=== PATIENT | female | born 1980 | race Caucasian/White ===

== ENCOUNTER 2022-07-11 05:20 | Inpatient (IN) | payer OTHER ==
[~2022-07-11] VITALS: Ht 175.3 cm; Wt 71.6 kg
[~2022-07-11 05:20] MED LIST: PROP60CA31 PO
[2022-07-11] MEDS ORDERED: CeFAZolin 2 GM/DEXTROSE 50 ML IV ONE (05:30)
[2022-07-11] MEDS ORDERED: RINGERS SOLUTION,LACTATED 1,000 ML IV ONE ×3 (05:30→13:16)
[2022-07-11 06:09] LABS: COVID AG,FIA SOURCE NASAL SWAB
[2022-07-11] MEDS ORDERED: SODIUM CHLORIDE 0.9% 100 ML ONE ×2 (06:24→07:10)
[2022-07-11 07:46] LABS: ABG A-A DIFF O2 20.2 mmHg (10-20.0); ABG BASE EXCESS -0.1 mmol/L (-2.0-3.0); ABG HCO3 24.9 mmol/L (22.0-26.0); ABG METHEMOGLOBIN 0.3 % (0.0-1.5); ABG OXYGEN CONTENT 18.6 mL/dL (15.0-23.0); ABG OXYGEN SATURATION 97.3 % (95.0-98.0); ABG PCO2 33 mmHg (35-45); ABG PH 7.474 (7.35-7.450); ABG TOTAL HEMOGLOBIN 13.7 G/dL (12.0-18.0); O2 DEVICE,BLOOD GAS ROOM AIR (ROOM AIR); PO2, ARTERIAL BG 90.6 mmHg (88.0-96.0); SITE, BLOOD GAS ARTERIAL LINE; SOURCE, BLOOD GAS ARTERIAL; TEMPERATURE, FAHRENHEIT, BG 97.7 FAHREN (96.0-98.6)
[2022-07-11] MEDS ORDERED: VANCOMYCIN HCL 1 GM/VIAL ONE (09:42)
[2022-07-11] MEDS: VANCOMYCIN HCL 1 GM/VIAL ONE ×2 (10:27→19:10)
[2022-07-11] MEDS ORDERED: PROPOFOL 1000 MG/ISO-OSM 100 ML ONE (13:16)
[2022-07-11] MEDS ORDERED: BACITRACIN 28 GM OINTMENT TP ONE (13:47)
[2022-07-11] MEDS ORDERED: FentaNYL CITRATE PF 100 MCG/2 ML VIAL IVP PRN (15:00)
[2022-07-11] MEDS ORDERED: HYDROmorphone HCL 2 MG/ML SYRINGE IVP PRN ×2 (15:00→21:30)
[2022-07-11] MEDS ORDERED: MEPERIDINE-PF 25 MG/ML VIAL IVP PRN (15:00)
[2022-07-11] MEDS ORDERED: GELATIN SPONGE,ABSORBABLE 50 MM TP ONE (17:12)
[2022-07-11] MEDS: FentaNYL CIT 1000MCG/0.9% NACL 100 ML IV PRN ×2 (19:39→23:30)
[2022-07-11] MEDS ORDERED: SODIUM CHLORIDE 0.9% 1,000 ML ONE (19:49)
[2022-07-11 20:00] VITALS: BP 146/76
[2022-07-11] MEDS: OXYGEN THERAPY IH SCH (20:49)
[2022-07-11] MEDS: PROPOFOL 1000 MG/ISO-OSM 100 ML IV PRN (20:51)
[2022-07-11 21:43] VITALS: BP 146/76
[2022-07-11 22:00] VITALS: BP 128/64
[2022-07-11] MEDS: POTASSIUM CHL 20 MEQ/D5-0.45NS 1,000 ML IV SCH (22:04)
[2022-07-11] MEDS: CeFAZolin 2 GM/DEXTROSE 50 ML IV SCH (22:28)
[2022-07-12] VITALS (8 sets, daily range): BP systolic 119–145; BP diastolic 56–97
[2022-07-12] MEDS: PROPOFOL 1000 MG/ISO-OSM 100 ML IV PRN ×2 (00:01→04:10)
[2022-07-12] MEDS ORDERED: ONDANSETRON HCL 4 MG/2 ML VIAL IVP PRN (00:15)
[2022-07-12] MEDS ORDERED: BISACODYL 10 MG RECTAL RECTAL SUPPOSITORY PR PRN (00:15)
[2022-07-12] MEDS: FentaNYL CIT 1000MCG/0.9% NACL 100 ML IV PRN (04:14)
[2022-07-12] MEDS: MORPHINE SULFATE 2 MG/ML SYRINGE IVP PRN ×8 (04:41→21:48)
[2022-07-12] MEDS: POTASSIUM CHL 20 MEQ/D5-0.45NS 1,000 ML IV SCH (05:27)
[2022-07-12] MEDS: CeFAZolin 2 GM/DEXTROSE 50 ML IV SCH (05:32)
[2022-07-12 05:50] LABS: BASOPHILS % (AUTO) 0.4 % (0.0-2.0); EOSINOPHILS % (AUTO) 1.1 % (1.0-6.0); HEMATOCRIT 30.9 % (36-46); HEMOGLOBIN 10.4 g/dL (12.0-16.0); LYMPHOCYTES # (AUTO) 0.6 K/uL (1.0-4.8); LYMPHOCYTES % (AUTO) 13.6 % (22.0-44.0); MEAN CORPUSCULAR HEMOGLOBIN 35.1 pg (26.0-34.0); MEAN CORPUSCULAR HGB CONC 33.7 G/dL (31.0-37.0); MEAN CORPUSCULAR VOLUME 104 fL (80-100); MONOCYTES # (AUTO) 0.4 K/uL (0.1-1.0); MONOCYTES % (AUTO) 8.9 % (2.0-9.0); NEUTROPHILS # (AUTO) 3.5 K/uL (1.8-7.7); PLATELET COUNT (AUTO) 88 K/uL (150-450); RED BLOOD CELL COUNT(AUTO) 2.97 MIL/uL (4.00-5.20); RED CELL DISTRIBUTION WIDTH 16.3 % (11.5-14.5)
[2022-07-12 06:02] LABS: PROTHROMBIN TIME 10.9 SEC (9.4-11.6)
[2022-07-12 06:06] LABS: ALANINE AMINOTRANSFERASE 182 U/L (12-78); ALKALINE PHOSPHATASE 45 U/L (46-116); ANION GAP 6 mmol/L (8-16); ASPARTATE AMINOTRANSFERASE 198 U/L (15-37); BILIRUBIN,TOTAL 0.6 mg/dL (0.1-1.0); CALCIUM, TOTAL 7.7 mg/dL (8.8-10.5); CARBON DIOXIDE 29 mmol/L (22-29); CHLORIDE 103 mmol/L (98-107); CREATININE 0.44 mg/dL (0.60-1.30); GLUCOSE,RANDOM 137 mg/dL (70-110); POTASSIUM 3.5 mmol/L (3.5-5.1); SODIUM SERUM 138 mmol/L (136-145); TOTAL PROTEIN, SERUM 6.3 g/dL (6.4-8.2); UREA NITROGEN, BLOOD 5 mg/dL (7-18)
[2022-07-12 06:08] LABS: GLOMERULAR FILTR. RATE CALC > 60 mL/min (>60)
[2022-07-12 06:19] LABS: PLATELET MORPHOLOGY COMMENT LARGE PLTS PRESENT
[2022-07-12] MEDS ORDERED: METOPROLOL TARTRATE 5 MG/5 ML VIAL IVP ONE (06:20)
[2022-07-12] MEDS ORDERED: FentaNYL CITRATE PF 100 MCG/2 ML VIAL IVP ONE (06:20)
[2022-07-12] MEDS ORDERED: DEXAMETHASONE SOD PHOS 4 MG/ML VIAL IVP ONE (06:20)
[2022-07-12] MEDS ORDERED: FentaNYL CITRATE PF 250 MCG/5 ML VIAL IVP ONE (06:20)
[2022-07-12] MEDS ORDERED: MIDAZOLAM HCL 2 MG/2 ML VIAL IVP ONE (06:20)
[2022-07-12] MEDS ORDERED: KETAMINE HCL 50 MG/ML 10 ML VIAL IVP ONE (06:20)
[2022-07-12] MEDS ORDERED: 0.9% SODIUM CHLORIDE 10 ML VIAL IVP ONE (06:20)
[2022-07-12] MEDS ORDERED: HYDROmorphone 2 MG/ML VIAL ED ONE (06:20)
[2022-07-12] MEDS ORDERED: PHENYLEPHRINE HCL 10 MG/ML VIAL IVP ONE (06:20)
[2022-07-12] MEDS ORDERED: ROCURONIUM BROMIDE 10 MG/ML 5 ML VIAL IVP ONE (06:20)
[2022-07-12] MEDS ORDERED: ONDANSETRON HCL 4 MG/2 ML VIAL IVP ONE (06:20)
[2022-07-12] MEDS ORDERED: LIDOCAINE/PF 2% 5 ML VIAL IM ONE (06:20)
[2022-07-12] MEDS: OXYGEN THERAPY IH SCH ×2 (06:35→21:44)
[2022-07-12] MEDS: IPRATROPIUM BROMIDE 0.5 MG/2.5 ML NEB SOLUTION NEB PRN ×2 (06:35→21:26)
[2022-07-12] MEDS: ALBUTEROL SULFATE 2.5 MG/0.5 ML NEB SOLUTION NEB PRN ×2 (06:35→21:26)
[2022-07-12] MEDS: DOCUSATE SODIUM 100 MG CAPSULE PO SCH ×2 (08:08→21:00)
[2022-07-12] MEDS: PANTOPRAZOLE SODIUM 40 MG/VIAL IVP SCH (08:08)
[2022-07-12] MEDS: HEPARIN SODIUM,PORCINE 5,000 UNITS/ML VIAL SQ SCH ×2 (08:09→16:05)
[2022-07-12] MEDS ORDERED: ACETAMINOPHEN 650 MG/20.3 ML SOLUTION UDCUP PO ONE (10:45)
[2022-07-12] MEDS ORDERED: ACETAMINOPHEN 325 MG TABLET PO ONE (10:45)
[2022-07-12] MEDS: CYCLOBENZAPRINE HCL 10 MG TABLET PO SCH ×3 (10:48→17:22)
[2022-07-12] MEDS: PROPRANOLOL HCL 40 MG TABLET PO SCH (10:48)
[2022-07-13] VITALS: BP 140/89
[2022-07-13] MEDS: CYCLOBENZAPRINE HCL 10 MG TABLET PO SCH ×5 (01:13→23:44)
[2022-07-13] MEDS: MORPHINE SULFATE 2 MG/ML SYRINGE IVP PRN ×9 (01:14→15:38)
[2022-07-13] MEDS: HEPARIN SODIUM,PORCINE 5,000 UNITS/ML VIAL SQ SCH ×3 (01:14→16:36)
[2022-07-13] MEDS: ZOLPIDEM TARTRATE 5 MG TABLET PO PRN (01:19)
[2022-07-13 04:00] VITALS: BP 150/95
[2022-07-13] MEDS: PANTOPRAZOLE SODIUM 40 MG/VIAL IVP SCH (08:29)
[2022-07-13] MEDS: DOCUSATE SODIUM 100 MG CAPSULE PO SCH ×2 (08:29→21:31)
[2022-07-13] MEDS: PROPRANOLOL HCL 40 MG TABLET PO SCH (08:30)
[2022-07-13] MEDS: OXYGEN THERAPY IH SCH ×2 (08:41→20:03)
[2022-07-13 10:16] VITALS: BP 132/88
[2022-07-13 12:00] VITALS: BP 132/84
[2022-07-13 16:00] VITALS: BP 128/81
[2022-07-13 20:00] VITALS: BP 142/95
[2022-07-13] MEDS: DEXAMETHASONE SOD PHOS 4 MG/ML VIAL IVP SCH (21:31)
[2022-07-13] MEDS: BENZONATATE 100 MG CAPSULE PO PRN (23:57)
[2022-07-14] VITALS: BP 141/102
[2022-07-14 04:55] LABS: BASOPHILS % (AUTO) 0.8 % (0.0-2.0); EOSINOPHILS % (AUTO) 0.3 % (1.0-6.0); HEMATOCRIT 32.7 % (36-46); HEMOGLOBIN 11.4 g/dL (12.0-16.0); LYMPHOCYTES # (AUTO) 0.9 K/uL (1.0-4.8); LYMPHOCYTES % (AUTO) 12.3 % (22.0-44.0); MEAN CORPUSCULAR HEMOGLOBIN 35.7 pg (26.0-34.0); MEAN CORPUSCULAR HGB CONC 34.8 G/dL (31.0-37.0); MEAN CORPUSCULAR VOLUME 103 fL (80-100); MONOCYTES % (AUTO) 13.7 % (2.0-9.0); NEUTROPHILS # (AUTO) 5.2 K/uL (1.8-7.7); NEUTROPHILS % (AUTO) 72.9 % (40.0-70.0); PLATELET COUNT (AUTO) 121 K/uL (150-450); RED BLOOD CELL COUNT(AUTO) 3.19 MIL/uL (4.00-5.20); RED CELL DISTRIBUTION WIDTH 15.5 % (11.5-14.5)
[2022-07-14] MEDS: CYCLOBENZAPRINE HCL 10 MG TABLET PO SCH ×2 (06:45→12:00)
[2022-07-14] MEDS: OXYGEN THERAPY IH SCH ×2 (08:00→20:00)
[2022-07-14] MEDS: PANTOPRAZOLE SODIUM 40 MG/VIAL IVP SCH (09:02)
[2022-07-14] MEDS: DEXAMETHASONE SOD PHOS 4 MG/ML VIAL IVP SCH ×2 (09:02→20:43)
[2022-07-14] MEDS: HEPARIN SODIUM,PORCINE 5,000 UNITS/ML VIAL SQ SCH ×4 (09:04→23:30)
[2022-07-14] MEDS: DOCUSATE SODIUM 100 MG CAPSULE PO SCH ×2 (09:04→20:43)
[2022-07-14] MEDS: PROPRANOLOL HCL 40 MG TABLET PO SCH (09:04)
[2022-07-14 11:03] LABS: APPEARANCE,URINE HAZY (CLEAR); GLUCOSE, URINE (UA) TRACE mg/dL (NEGATIVE); KETONES,URINE =>150 mg/dL (NEGATIVE); LEUKOCYTE ESTERASE ,URINE MODERATE (NEGATIVE); NITRATE,URINE NEGATIVE (NEGATIVE); OCCULT BLOOD,URINE LARGE (NEGATIVE); PH,URINE 6.5 (5.0-8.0); PROTEIN,URINE 30-70 mg/dL (NEGATIVE); SPECIFIC GRAVITIY, URINE 1.023 (1.003-1.030); UROBILINOGEN,URINE >12.0 mg/dL (<=1.0)
[2022-07-14 11:11] LABS: BILIRUBIN,URINE SMALL (NEGATIVE)
[2022-07-14 11:26] LABS: RBC,URINE >100 /HPF (0-2)
[2022-07-14 11:29] LABS: BACTERIA,URINE Few /HPF (None Seen); SQUAMOUS EPITHELIAL CELL,UR Few /LPF (None Seen)
[2022-07-14] MEDS ORDERED: SODIUM CHLORIDE 0.9% 500 ML IV ONE (13:41)
[2022-07-14] MEDS ORDERED: SODIUM CHLORIDE 0.9% 250 ML IV ONE (13:41)
[2022-07-14] MEDS: CefTRIAXone 1 GM/DEXTROSE 50 ML IV SCH (13:51)
[2022-07-14] MEDS: MAGNESIUM SULFATE 2 GM, MVI, ADULT NO.1 WITH VIT K 10 ML, THIAMINE 100 MG, FOLIC ACID 1... IV SCH ×5 (18:38)
[2022-07-14 19:03] VITALS: BP 134/99
[2022-07-14] MEDS: ChlordiazePOXIDE HCL 10 MG CAPSULE PO SCH (20:43)
[2022-07-14] MEDS: ZOLPIDEM TARTRATE 5 MG TABLET PO PRN (23:23)
[2022-07-14] MEDS: MORPHINE SULFATE 2 MG/ML SYRINGE IVP PRN (23:33)
[2022-07-15] MEDS ORDERED: LORazepam 2 MG/ML VIAL IM ONE (01:45)
[2022-07-15 04:30] VITALS: BP 143/91
[2022-07-15 07:30] VITALS: BP 146/97
[2022-07-15] MEDS: OXYGEN THERAPY IH SCH ×2 (08:00→20:05)
[2022-07-15] MEDS: HEPARIN SODIUM,PORCINE 5,000 UNITS/ML VIAL SQ SCH ×2 (08:29→16:10)
[2022-07-15] MEDS: PROPRANOLOL HCL 40 MG TABLET PO SCH (08:29)
[2022-07-15] MEDS: ChlordiazePOXIDE HCL 10 MG CAPSULE PO SCH (08:29)
[2022-07-15] MEDS: DEXAMETHASONE SOD PHOS 4 MG/ML VIAL IVP SCH ×2 (08:29→21:03)
[2022-07-15] MEDS: PANTOPRAZOLE SODIUM 40 MG/VIAL IVP SCH (08:29)
[2022-07-15] MEDS: DOCUSATE SODIUM 100 MG CAPSULE PO SCH ×2 (08:29→20:08)
[2022-07-15] MEDS: MORPHINE SULFATE 2 MG/ML SYRINGE IVP PRN (08:34)
[2022-07-15] MEDS: MULTIVITAMINS WITH MINERALS, THERAPEUTIC TABLET PO SCH (10:45)
[2022-07-15] MEDS ORDERED: LORazepam 2 MG/ML VIAL IVP ONE (11:45)
[2022-07-15 13:06] VITALS: BP 142/95
[2022-07-15] MEDS: CefTRIAXone 1 GM/DEXTROSE 50 ML IV SCH (13:35)
[2022-07-15 14:04] LABS: ANION GAP 11 mmol/L (8-16); CALCIUM, TOTAL 8.9 mg/dL (8.8-10.5); CARBON DIOXIDE 28 mmol/L (22-29); CHLORIDE 98 mmol/L (98-107); CREATININE 0.47 mg/dL (0.60-1.30); GLUCOSE,RANDOM 107 mg/dL (70-110); PHOSPHORUS 4.1 mg/dL (2.5-4.9); SODIUM SERUM 137 mmol/L (136-145); UREA NITROGEN, BLOOD 8 mg/dL (7-18)
[2022-07-15 14:06] LABS: GLOMERULAR FILTR. RATE CALC > 60 mL/min (>60)
[2022-07-15 14:08] LABS: POTASSIUM 2.9 mmol/L (3.5-5.1)
[2022-07-15] MEDS: MAGNESIUM SULFATE 2 GM, MVI, ADULT NO.1 WITH VIT K 10 ML, THIAMINE 100 MG, FOLIC ACID 1... IV SCH ×5 (14:40)
[2022-07-15] MEDS: LORazepam 2 MG/ML VIAL IVP PRN ×5 (14:57→23:29)
[2022-07-15 16:00] VITALS: BP 152/76
[2022-07-15] MEDS: POTASSIUM CHL 10 MEQ/WATER 50 ML IV PRN ×4 (16:13→19:17)
[2022-07-15] MEDS: ChlordiazePOXIDE HCL 25 MG CAPSULE PO SCH ×3 (16:47→23:56)
[2022-07-15 20:00] VITALS: BP 154/101
[2022-07-16] VITALS: BP 173/125
[2022-07-16] MEDS: HEPARIN SODIUM,PORCINE 5,000 UNITS/ML VIAL SQ SCH ×5 (00:11→23:49)
[2022-07-16] MEDS: POTASSIUM CHL 10 MEQ/WATER 50 ML IV PRN ×9 (01:26→17:27)
[2022-07-16] MEDS ORDERED: SODIUM CHLORIDE 0.9% 250 ML IV ONE ×2 (01:26→20:31)
[2022-07-16] MEDS: LORazepam 2 MG/ML VIAL IVP PRN (02:33)
[2022-07-16 02:53] LABS: BASOPHILS % (AUTO) 0.5 % (0.0-2.0); EOSINOPHILS % (AUTO) 0.2 % (1.0-6.0); HEMATOCRIT 31.9 % (36-46); HEMOGLOBIN 10.7 g/dL (12.0-16.0); LYMPHOCYTES # (AUTO) 0.7 K/uL (1.0-4.8); LYMPHOCYTES % (AUTO) 8.8 % (22.0-44.0); MEAN CORPUSCULAR HEMOGLOBIN 34.5 pg (26.0-34.0); MEAN CORPUSCULAR HGB CONC 33.5 G/dL (31.0-37.0); MEAN CORPUSCULAR VOLUME 103 fL (80-100); MONOCYTES # (AUTO) 1.5 K/uL (0.1-1.0); MONOCYTES % (AUTO) 18.2 % (2.0-9.0); NEUTROPHILS # (AUTO) 6.1 K/uL (1.8-7.7); NEUTROPHILS % (AUTO) 72.3 % (40.0-70.0); PLATELET COUNT (AUTO) 187 K/uL (150-450); RED CELL DISTRIBUTION WIDTH 15.1 % (11.5-14.5)
[2022-07-16] MEDS ORDERED: ETOMIDATE 2 MG/ML 10 ML VIAL ONE ×2 (03:22→03:32)
[2022-07-16 04:00] VITALS: BP 163/109
[2022-07-16] MEDS ORDERED: ETOMIDATE 2 MG/ML 10 ML VIAL IVP ONE (04:00)
[2022-07-16] MEDS ORDERED: ROCURONIUM BROMIDE 10 MG/ML 5 ML VIAL IVP ONE (04:00)
[2022-07-16] MEDS: PROPOFOL 1000 MG/ISO-OSM 100 ML IV PRN ×5 (04:57→22:24)
[2022-07-16] MEDS: FentaNYL CIT 1000MCG/0.9% NACL 100 ML IV PRN ×4 (05:02→22:23)
[2022-07-16 05:23] LABS: BASOPHILS % (AUTO) 0.5 % (0.0-2.0); EOSINOPHILS % (AUTO) 0.2 % (1.0-6.0); HEMATOCRIT 30.3 % (36-46); HEMOGLOBIN 10.4 g/dL (12.0-16.0); LYMPHOCYTES # (AUTO) 0.8 K/uL (1.0-4.8); LYMPHOCYTES % (AUTO) 10.1 % (22.0-44.0); MEAN CORPUSCULAR HEMOGLOBIN 35.2 pg (26.0-34.0); MEAN CORPUSCULAR HGB CONC 34.5 G/dL (31.0-37.0); MEAN CORPUSCULAR VOLUME 102 fL (80-100); MONOCYTES # (AUTO) 1.7 K/uL (0.1-1.0); NEUTROPHILS # (AUTO) 5.3 K/uL (1.8-7.7); NEUTROPHILS % (AUTO) 67.2 % (40.0-70.0); PLATELET COUNT (AUTO) 186 K/uL (150-450); RED BLOOD CELL COUNT(AUTO) 2.96 MIL/uL (4.00-5.20); RED CELL DISTRIBUTION WIDTH 14.9 % (11.5-14.5)
[2022-07-16 05:27] LABS: ANION GAP 9 mmol/L (8-16); CARBON DIOXIDE 27 mmol/L (22-29); CHLORIDE 96 mmol/L (98-107); CREATININE 0.38 mg/dL (0.60-1.30); GLUCOSE,RANDOM 101 mg/dL (70-110); POTASSIUM 3.1 mmol/L (3.5-5.1); SODIUM SERUM 132 mmol/L (136-145); UREA NITROGEN, BLOOD 6 mg/dL (7-18)
[2022-07-16 05:30] LABS: GLOMERULAR FILTR. RATE CALC > 60 mL/min (>60)
[2022-07-16] MEDS: ChlordiazePOXIDE HCL 25 MG CAPSULE PO SCH ×4 (06:00→23:49)
[2022-07-16 08:00] VITALS: BP 102/67
[2022-07-16] MEDS: OXYGEN THERAPY IH SCH ×2 (08:00→21:02)
[2022-07-16] MEDS: DOCUSATE SODIUM 100 MG CAPSULE PO SCH (08:15)
[2022-07-16] MEDS: PANTOPRAZOLE SODIUM 40 MG/VIAL IVP SCH (08:15)
[2022-07-16] MEDS: FOLIC ACID 1 MG TABLET PO SCH (08:15)
[2022-07-16] MEDS: DEXAMETHASONE SOD PHOS 4 MG/ML VIAL IVP SCH ×2 (08:15→21:03)
[2022-07-16] MEDS: THIAMINE 100 MG TABLET PO SCH (08:16)
[2022-07-16] MEDS: PROPRANOLOL HCL 60 MG ER CAPSULE PO SCH (08:16)
[2022-07-16] MEDS: MULTIVITAMINS WITH MINERALS, THERAPEUTIC TABLET PO SCH (08:16)
[2022-07-16 09:31] LABS: ABG BASE EXCESS 2.9 mmol/L (-2.0-3.0); ABG METHEMOGLOBIN 0.3 % (0.0-1.5); ABG OXYGEN CONTENT 15.2 mL/dL (15.0-23.0); ABG OXYGEN SATURATION 99.2 % (95.0-98.0); ABG OXYHEMOGLOBIN 98.9 % (94.0-100.0); ABG PCO2 42 mmHg (35-45); ABG PH 7.432 (7.35-7.450); ABG TOTAL HEMOGLOBIN 10.7 G/dL (12.0-18.0); PO2, ARTERIAL BG 159.9 mmHg (88.0-96.0); SOURCE, BLOOD GAS ARTERIAL; TEMPERATURE, FAHRENHEIT, BG 99.7 FAHREN (96.0-98.6)
[2022-07-16] MEDS: MAGNESIUM SULFATE 2 GM, MVI, ADULT NO.1 WITH VIT K 10 ML, THIAMINE 100 MG, FOLIC ACID 1... IV SCH ×5 (10:09)
[2022-07-16 10:56] LABS: SITE, BLOOD GAS RT RADIAL
[2022-07-16 10:57] LABS: ABG A-A DIFF O2 76.7 mmHg (10-20.0); O2 DEVICE,BLOOD GAS VENTILATOR (ROOM AIR); PEEP,BG 5 cm H2O; VT, ABG 400 ml
[2022-07-16 12:00] VITALS: BP 120/75
[2022-07-16] MEDS: CefTRIAXone 1 GM/DEXTROSE 50 ML IV SCH (12:29)
[2022-07-16] MEDS ORDERED: ChlordiazePOXIDE HCL 25 MG CAPSULE PO SCH (15:45)
[2022-07-16 16:00] VITALS: BP 100/66
[2022-07-16] MEDS: AMPICILLIN SODIUM/SULBACTAM NA 1.5 GM in SODIUM CHLORIDE 0.9% 50 ML IV SCH ×2 (16:28→22:24)
[2022-07-16] MEDS ORDERED: MIDAZOLAM HCL 100 MG in SODIUM CHLORIDE 0.9% 180 ML IV PRN (18:00)
[2022-07-16 20:00] VITALS: BP 107/63
[2022-07-17] VITALS (12 sets, daily range): BP systolic 96–118; BP diastolic 54–67
[2022-07-17] MEDS: PROPOFOL 1000 MG/ISO-OSM 100 ML IV PRN ×6 (03:38→23:59)
[2022-07-17] MEDS: AMPICILLIN SODIUM/SULBACTAM NA 1.5 GM in SODIUM CHLORIDE 0.9% 50 ML IV SCH ×4 (05:15→23:59)
[2022-07-17] MEDS: ChlordiazePOXIDE HCL 25 MG CAPSULE PO SCH ×3 (05:15→18:28)
[2022-07-17 05:21] LABS: BASOPHILS % (AUTO) 0.7 % (0.0-2.0); HEMATOCRIT 27.2 % (36-46); HEMOGLOBIN 9.4 g/dL (12.0-16.0); LYMPHOCYTES # (AUTO) 0.9 K/uL (1.0-4.8); LYMPHOCYTES % (AUTO) 15.8 % (22.0-44.0); MEAN CORPUSCULAR HEMOGLOBIN 35.1 pg (26.0-34.0); MEAN CORPUSCULAR HGB CONC 34.4 G/dL (31.0-37.0); MEAN CORPUSCULAR VOLUME 102 fL (80-100); MONOCYTES % (AUTO) 16.1 % (2.0-9.0); NEUTROPHILS # (AUTO) 3.9 K/uL (1.8-7.7); NEUTROPHILS % (AUTO) 66.4 % (40.0-70.0); PLATELET COUNT (AUTO) 190 K/uL (150-450); RED BLOOD CELL COUNT(AUTO) 2.67 MIL/uL (4.00-5.20); RED CELL DISTRIBUTION WIDTH 15.3 % (11.5-14.5)
[2022-07-17] MEDS: FentaNYL CIT 1000MCG/0.9% NACL 100 ML IV PRN ×4 (06:04→23:59)
[2022-07-17] MEDS: MAGNESIUM SULFATE 2 GM, MVI, ADULT NO.1 WITH VIT K 10 ML, THIAMINE 100 MG, FOLIC ACID 1... IV SCH ×5 (06:54)
[2022-07-17 07:01] LABS: ANION GAP 9 mmol/L (8-16); CALCIUM, TOTAL 7.9 mg/dL (8.8-10.5); CARBON DIOXIDE 27 mmol/L (22-29); CHLORIDE 99 mmol/L (98-107); CREATININE 0.37 mg/dL (0.60-1.30); GLUCOSE,RANDOM 88 mg/dL (70-110); PHOSPHORUS 3.2 mg/dL (2.5-4.9); POTASSIUM 3.6 mmol/L (3.5-5.1); SODIUM SERUM 135 mmol/L (136-145); UREA NITROGEN, BLOOD 6 mg/dL (7-18)
[2022-07-17 07:02] LABS: GLOMERULAR FILTR. RATE CALC > 60 mL/min (>60)
[2022-07-17] MEDS: MULTIVITAMINS WITH MINERALS, THERAPEUTIC TABLET PO SCH (08:32)
[2022-07-17] MEDS: HEPARIN SODIUM,PORCINE 5,000 UNITS/ML VIAL SQ SCH ×2 (08:32→16:44)
[2022-07-17] MEDS: OXYGEN THERAPY IH SCH ×2 (08:32→20:00)
[2022-07-17] MEDS: THIAMINE 100 MG TABLET PO SCH (08:32)
[2022-07-17] MEDS: PROPRANOLOL HCL 60 MG ER CAPSULE PO SCH ×2 (08:32→09:00)
[2022-07-17] MEDS: FOLIC ACID 1 MG TABLET PO SCH (08:32)
[2022-07-17] MEDS: DOCUSATE SODIUM 100 MG/10 ML LIQUID UDCUP NG SCH ×2 (08:33→20:43)
[2022-07-17] MEDS: DEXAMETHASONE SOD PHOS 4 MG/ML VIAL IVP SCH ×2 (08:33→20:43)
[2022-07-17] MEDS: PANTOPRAZOLE SODIUM 40 MG/VIAL IVP SCH (08:33)
[2022-07-17] MEDS: LORazepam 2 MG/ML VIAL IVP PRN (20:44)
[2022-07-18] VITALS (12 sets, daily range): BP systolic 107–134; BP diastolic 58–85
[2022-07-18] MEDS ORDERED: SODIUM CHLORIDE 0.9% 100 ML ONE ×2 (00:39→13:38)
[2022-07-18] MEDS: MAGNESIUM SULFATE 2 GM, MVI, ADULT NO.1 WITH VIT K 10 ML, THIAMINE 100 MG, FOLIC ACID 1... IV SCH ×5 (03:25)
[2022-07-18] MEDS: FentaNYL CIT 1000MCG/0.9% NACL 100 ML IV PRN ×4 (04:02→23:37)
[2022-07-18] MEDS: PROPOFOL 1000 MG/ISO-OSM 100 ML IV PRN ×3 (04:02→20:25)
[2022-07-18] MEDS: AMPICILLIN SODIUM/SULBACTAM NA 1.5 GM in SODIUM CHLORIDE 0.9% 50 ML IV SCH ×4 (04:49→22:21)
[2022-07-18 06:16] LABS: BASOPHILS % (AUTO) 0.7 % (0.0-2.0); EOSINOPHILS % (AUTO) 1.1 % (1.0-6.0); HEMATOCRIT 25.4 % (36-46); HEMOGLOBIN 8.5 g/dL (12.0-16.0); LYMPHOCYTES # (AUTO) 1.2 K/uL (1.0-4.8); LYMPHOCYTES % (AUTO) 17.8 % (22.0-44.0); MEAN CORPUSCULAR HEMOGLOBIN 34.7 pg (26.0-34.0); MEAN CORPUSCULAR HGB CONC 33.6 G/dL (31.0-37.0); MEAN CORPUSCULAR VOLUME 103 fL (80-100); MONOCYTES # (AUTO) 0.8 K/uL (0.1-1.0); MONOCYTES % (AUTO) 11.8 % (2.0-9.0); NEUTROPHILS # (AUTO) 4.7 K/uL (1.8-7.7); NEUTROPHILS % (AUTO) 68.6 % (40.0-70.0); PLATELET COUNT (AUTO) 208 K/uL (150-450); RED BLOOD CELL COUNT(AUTO) 2.46 MIL/uL (4.00-5.20); RED CELL DISTRIBUTION WIDTH 15.5 % (11.5-14.5)
[2022-07-18 07:25] LABS: ANION GAP 7 mmol/L (8-16); CARBON DIOXIDE 30 mmol/L (22-29); CHLORIDE 106 mmol/L (98-107); CREATININE 0.35 mg/dL (0.60-1.30); GLUCOSE,RANDOM 98 mg/dL (70-110); POTASSIUM 3.3 mmol/L (3.5-5.1); SODIUM SERUM 143 mmol/L (136-145); UREA NITROGEN, BLOOD 4 mg/dL (7-18)
[2022-07-18] MEDS: ChlordiazePOXIDE HCL 25 MG CAPSULE PO SCH ×5 (07:26→23:37)
[2022-07-18 07:27] LABS: GLOMERULAR FILTR. RATE CALC > 60 mL/min (>60)
[2022-07-18] MEDS: FOLIC ACID 1 MG TABLET PO SCH (08:24)
[2022-07-18] MEDS: DOCUSATE SODIUM 100 MG/10 ML LIQUID UDCUP NG SCH ×2 (08:25→22:20)
[2022-07-18] MEDS: THIAMINE 100 MG TABLET PO SCH (08:25)
[2022-07-18] MEDS: PANTOPRAZOLE SODIUM 40 MG/VIAL IVP SCH (08:26)
[2022-07-18] MEDS: HEPARIN SODIUM,PORCINE 5,000 UNITS/ML VIAL SQ SCH ×4 (08:26→23:38)
[2022-07-18] MEDS: DEXAMETHASONE SOD PHOS 4 MG/ML VIAL IVP SCH ×2 (08:26→22:20)
[2022-07-18] MEDS: MULTIVITAMINS WITH MINERALS, THERAPEUTIC TABLET PO SCH (08:26)
[2022-07-18] MEDS: OXYGEN THERAPY IH SCH ×2 (08:27→20:00)
[2022-07-18] MEDS: PROPRANOLOL HCL 60 MG ER CAPSULE PO SCH ×2 (09:00→09:09)
[2022-07-18] MEDS: POTASSIUM CHL 10 MEQ/WATER 50 ML IV PRN ×3 (09:30→12:19)
[2022-07-18 17:06] LABS: GLUCOSE,POINT OF CARE 90 MG/DL (70-110)
[2022-07-18] MEDS: [UNRECOGNIZED DRUG - REMARK] IV SCH ×4 (23:40)
[2022-07-19] VITALS (8 sets, daily range): BP systolic 111–136; BP diastolic 66–77
[2022-07-19] MEDS: AMPICILLIN SODIUM/SULBACTAM NA 1.5 GM in SODIUM CHLORIDE 0.9% 50 ML IV SCH ×4 (04:38→23:30)
[2022-07-19] MEDS: FentaNYL CIT 1000MCG/0.9% NACL 100 ML IV PRN ×4 (04:42→20:41)
[2022-07-19] MEDS: ChlordiazePOXIDE HCL 25 MG CAPSULE PO SCH ×4 (05:47→23:30)
[2022-07-19 06:05] LABS: BASOPHILS % (AUTO) 0.8 % (0.0-2.0); EOSINOPHILS % (AUTO) 0.8 % (1.0-6.0); HEMATOCRIT 30.5 % (36-46); HEMOGLOBIN 10.1 g/dL (12.0-16.0); LYMPHOCYTES % (AUTO) 16.2 % (22.0-44.0); MEAN CORPUSCULAR HEMOGLOBIN 34.3 pg (26.0-34.0); MEAN CORPUSCULAR HGB CONC 33.2 G/dL (31.0-37.0); MEAN CORPUSCULAR VOLUME 103 fL (80-100); MONOCYTES # (AUTO) 0.7 K/uL (0.1-1.0); MONOCYTES % (AUTO) 10.7 % (2.0-9.0); NEUTROPHILS # (AUTO) 4.5 K/uL (1.8-7.7); NEUTROPHILS % (AUTO) 71.5 % (40.0-70.0); PLATELET COUNT (AUTO) 244 K/uL (150-450); RED BLOOD CELL COUNT(AUTO) 2.95 MIL/uL (4.00-5.20); RED CELL DISTRIBUTION WIDTH 15.8 % (11.5-14.5)
[2022-07-19 06:26] LABS: ALANINE AMINOTRANSFERASE 26 U/L (12-78); ALBUMIN 2.3 g/dL (3.4-5.0); ALKALINE PHOSPHATASE 54 U/L (46-116); ANION GAP 9 mmol/L (8-16); ASPARTATE AMINOTRANSFERASE 23 U/L (15-37); BILIRUBIN,TOTAL 0.2 mg/dL (0.1-1.0); CALCIUM, TOTAL 8.1 mg/dL (8.8-10.5); CARBON DIOXIDE 26 mmol/L (22-29); CHLORIDE 102 mmol/L (98-107); CREATININE 0.33 mg/dL (0.60-1.30); GLUCOSE,RANDOM 102 mg/dL (70-110); PHOSPHORUS 3.7 mg/dL (2.5-4.9); POTASSIUM 3.5 mmol/L (3.5-5.1); SODIUM SERUM 137 mmol/L (136-145); TOTAL PROTEIN, SERUM 6.4 g/dL (6.4-8.2); UREA NITROGEN, BLOOD 3 mg/dL (7-18)
[2022-07-19 06:30] LABS: GLOMERULAR FILTR. RATE CALC > 60 mL/min (>60)
[2022-07-19] MEDS: PROPOFOL 1000 MG/ISO-OSM 100 ML IV PRN ×3 (07:22→20:54)
[2022-07-19] MEDS: DEXAMETHASONE SOD PHOS 4 MG/ML VIAL IVP SCH ×2 (08:01→21:17)
[2022-07-19] MEDS: OXYGEN THERAPY IH SCH ×2 (08:01→21:17)
[2022-07-19] MEDS: HEPARIN SODIUM,PORCINE 5,000 UNITS/ML VIAL SQ SCH ×3 (08:01→23:29)
[2022-07-19] MEDS: FOLIC ACID 1 MG TABLET PO SCH (08:02)
[2022-07-19] MEDS: PROPRANOLOL HCL 60 MG ER CAPSULE PO SCH (08:02)
[2022-07-19] MEDS: THIAMINE 100 MG TABLET PO SCH (08:02)
[2022-07-19] MEDS: DOCUSATE SODIUM 100 MG/10 ML LIQUID UDCUP NG SCH ×2 (08:02→21:17)
[2022-07-19] MEDS: MULTIVITAMINS WITH MINERALS, THERAPEUTIC TABLET PO SCH (08:02)
[2022-07-19] MEDS: PANTOPRAZOLE SODIUM 40 MG/VIAL IVP SCH (09:26)
[2022-07-19] MEDS: DEXMEDETOMIDINE HCL 400 MCG in SODIUM CHLORIDE 0.9% 96 ML IV PRN (10:14)
[2022-07-19 15:51] LABS: GLUCOSE,POINT OF CARE 117 MG/DL (70-110)
[2022-07-19] MEDS: LORazepam 2 MG/ML VIAL IVP PRN (17:29)
[2022-07-19] MEDS: [UNRECOGNIZED DRUG - REMARK] IV SCH ×4 (21:17)
[2022-07-20] VITALS: BP 123/73
[2022-07-20 00:41] LABS: GLUCOSE,POINT OF CARE 125 MG/DL (70-110)
[2022-07-20] MEDS: PROPOFOL 1000 MG/ISO-OSM 100 ML IV PRN ×4 (00:54→23:00)
[2022-07-20] MEDS: FentaNYL CIT 1000MCG/0.9% NACL 100 ML IV PRN ×4 (01:59→21:01)
[2022-07-20 04:00] VITALS: BP 123/73
[2022-07-20] MEDS: ChlordiazePOXIDE HCL 25 MG CAPSULE PO SCH ×4 (05:25→23:58)
[2022-07-20] MEDS: AMPICILLIN SODIUM/SULBACTAM NA 1.5 GM in SODIUM CHLORIDE 0.9% 50 ML IV SCH ×4 (05:25→22:53)
[2022-07-20 05:30] LABS: EOSINOPHILS % (AUTO) 1.1 % (1.0-6.0); HEMATOCRIT 26.3 % (36-46); HEMOGLOBIN 8.9 g/dL (12.0-16.0); LYMPHOCYTES # (AUTO) 1.2 K/uL (1.0-4.8); LYMPHOCYTES % (AUTO) 19.9 % (22.0-44.0); MEAN CORPUSCULAR HEMOGLOBIN 34.2 pg (26.0-34.0); MEAN CORPUSCULAR HGB CONC 33.6 G/dL (31.0-37.0); MEAN CORPUSCULAR VOLUME 102 fL (80-100); MONOCYTES # (AUTO) 0.6 K/uL (0.1-1.0); MONOCYTES % (AUTO) 9.4 % (2.0-9.0); NEUTROPHILS # (AUTO) 4.2 K/uL (1.8-7.7); NEUTROPHILS % (AUTO) 68.6 % (40.0-70.0); PLATELET COUNT (AUTO) 262 K/uL (150-450); RED BLOOD CELL COUNT(AUTO) 2.59 MIL/uL (4.00-5.20); RED CELL DISTRIBUTION WIDTH 16.1 % (11.5-14.5)
[2022-07-20 05:52] LABS: ALANINE AMINOTRANSFERASE 25 U/L (12-78); ALBUMIN 2.2 g/dL (3.4-5.0); ALKALINE PHOSPHATASE 47 U/L (46-116); ANION GAP 7 mmol/L (8-16); ASPARTATE AMINOTRANSFERASE 22 U/L (15-37); BILIRUBIN,TOTAL 0.2 mg/dL (0.1-1.0); CALCIUM, TOTAL 8.3 mg/dL (8.8-10.5); CARBON DIOXIDE 31 mmol/L (22-29); CHLORIDE 103 mmol/L (98-107); CREATININE 0.34 mg/dL (0.60-1.30); GLUCOSE,RANDOM 114 mg/dL (70-110); POTASSIUM 3.2 mmol/L (3.5-5.1); SODIUM SERUM 141 mmol/L (136-145); UREA NITROGEN, BLOOD 4 mg/dL (7-18)
[2022-07-20 05:55] LABS: GLOMERULAR FILTR. RATE CALC > 60 mL/min (>60)
[2022-07-20 08:00] VITALS: BP 115/63
[2022-07-20] MEDS: OXYGEN THERAPY IH SCH ×2 (08:13→20:13)
[2022-07-20] MEDS: HEPARIN SODIUM,PORCINE 5,000 UNITS/ML VIAL SQ SCH ×3 (08:13→23:59)
[2022-07-20] MEDS: PANTOPRAZOLE SODIUM 40 MG/VIAL IVP SCH (08:14)
[2022-07-20] MEDS: DOCUSATE SODIUM 100 MG/10 ML LIQUID UDCUP NG SCH ×2 (08:14→20:42)
[2022-07-20] MEDS: PROPRANOLOL HCL 60 MG ER CAPSULE PO SCH (08:14)
[2022-07-20] MEDS: DEXAMETHASONE SOD PHOS 4 MG/ML VIAL IVP SCH ×2 (08:14→20:42)
[2022-07-20] MEDS: MULTIVITAMINS WITH MINERALS, THERAPEUTIC TABLET PO SCH (08:14)
[2022-07-20] MEDS: THIAMINE 100 MG TABLET PO SCH (08:15)
[2022-07-20] MEDS: FOLIC ACID 1 MG TABLET PO SCH (08:15)
[2022-07-20] MEDS ORDERED: SODIUM CHLORIDE 0.9% 250 ML IV ONE ×2 (11:22→20:20)
[2022-07-20 12:00] VITALS: BP 130/75
[2022-07-20 12:11] LABS: ABG BASE EXCESS 4.2 mmol/L (-2.0-3.0); ABG CARBOXYHEMOGLOBIN 0.3 % (0.0-1.5); ABG HCO3 28.1 mmol/L (22.0-26.0); ABG METHEMOGLOBIN 0.3 % (0.0-1.5); ABG OXYGEN CONTENT 14.5 mL/dL (15.0-23.0); ABG OXYGEN SATURATION 98.3 % (95.0-98.0); ABG OXYHEMOGLOBIN 97.7 % (94.0-100.0); ABG PCO2 38 mmHg (35-45); ABG PH 7.479 (7.35-7.450); ABG TOTAL HEMOGLOBIN 10.4 G/dL (12.0-18.0); PO2, ARTERIAL BG 127.5 mmHg (88.0-96.0); SOURCE, BLOOD GAS ARTERIAL; TEMPERATURE, FAHRENHEIT, BG 98.7 FAHREN (96.0-98.6)
[2022-07-20 14:18] LABS: SITE, BLOOD GAS RT RADIAL
[2022-07-20 14:19] LABS: ABG A-A DIFF O2 77.6 mmHg (10-20.0); O2 DEVICE,BLOOD GAS VENTILATOR (ROOM AIR); PEEP,BG 5 cm H2O; VT, ABG 400 ml
[2022-07-20] MEDS: [UNRECOGNIZED DRUG - REMARK] IV SCH ×4 (15:47)
[2022-07-20 16:00] VITALS: BP 127/75
[2022-07-20 20:00] VITALS: BP 133/87
[2022-07-20] MEDS: POTASSIUM CHL 10 MEQ/WATER 50 ML IV PRN ×3 (20:23→23:54)
[2022-07-21] VITALS: BP 117/68
[2022-07-21] MEDS: PROPOFOL 1000 MG/ISO-OSM 100 ML IV PRN ×3 (03:35→18:57)
[2022-07-21 04:00] VITALS: BP 114/73
[2022-07-21] MEDS: AMPICILLIN SODIUM/SULBACTAM NA 1.5 GM in SODIUM CHLORIDE 0.9% 50 ML IV SCH ×4 (05:17→22:50)
[2022-07-21 05:43] LABS: BASOPHILS % (AUTO) 0.7 % (0.0-2.0); EOSINOPHILS % (AUTO) 0.8 % (1.0-6.0); LYMPHOCYTES # (AUTO) 1.2 K/uL (1.0-4.8); LYMPHOCYTES % (AUTO) 14.1 % (22.0-44.0); MEAN CORPUSCULAR HEMOGLOBIN 33.5 pg (26.0-34.0); MEAN CORPUSCULAR HGB CONC 33.1 G/dL (31.0-37.0); MEAN CORPUSCULAR VOLUME 101 fL (80-100); MONOCYTES # (AUTO) 0.6 K/uL (0.1-1.0); MONOCYTES % (AUTO) 7.1 % (2.0-9.0); NEUTROPHILS # (AUTO) 6.6 K/uL (1.8-7.7); NEUTROPHILS % (AUTO) 77.3 % (40.0-70.0); PLATELET COUNT (AUTO) 271 K/uL (150-450); RED BLOOD CELL COUNT(AUTO) 2.67 MIL/uL (4.00-5.20); RED CELL DISTRIBUTION WIDTH 16.4 % (11.5-14.5)
[2022-07-21 05:55] LABS: ALANINE AMINOTRANSFERASE 26 U/L (12-78); ALBUMIN 2.2 g/dL (3.4-5.0); ALKALINE PHOSPHATASE 44 U/L (46-116); ANION GAP 6 mmol/L (8-16); ASPARTATE AMINOTRANSFERASE 24 U/L (15-37); BILIRUBIN,TOTAL 0.3 mg/dL (0.1-1.0); CALCIUM, TOTAL 8.4 mg/dL (8.8-10.5); CARBON DIOXIDE 31 mmol/L (22-29); CHLORIDE 103 mmol/L (98-107); CREATININE 0.35 mg/dL (0.60-1.30); GLUCOSE,RANDOM 113 mg/dL (70-110); POTASSIUM 3.3 mmol/L (3.5-5.1); SODIUM SERUM 140 mmol/L (136-145); UREA NITROGEN, BLOOD 5 mg/dL (7-18)
[2022-07-21 05:58] LABS: GLOMERULAR FILTR. RATE CALC > 60 mL/min (>60)
[2022-07-21] MEDS: ChlordiazePOXIDE HCL 25 MG CAPSULE PO SCH ×3 (06:17→17:44)
[2022-07-21] MEDS: FentaNYL CIT 1000MCG/0.9% NACL 100 ML IV PRN ×2 (06:17→23:31)
[2022-07-21] MEDS: POTASSIUM CHL 10 MEQ/WATER 50 ML IV PRN ×3 (06:30→10:11)
[2022-07-21 08:00] VITALS: BP 114/70
[2022-07-21] MEDS: DEXAMETHASONE SOD PHOS 4 MG/ML VIAL IVP SCH ×2 (08:31→20:11)
[2022-07-21] MEDS: OXYGEN THERAPY IH SCH (08:31)
[2022-07-21] MEDS: HEPARIN SODIUM,PORCINE 5,000 UNITS/ML VIAL SQ SCH ×2 (08:31→16:44)
[2022-07-21] MEDS: PROPRANOLOL HCL 60 MG ER CAPSULE PO SCH (08:32)
[2022-07-21] MEDS: PANTOPRAZOLE SODIUM 40 MG/VIAL IVP SCH (08:32)
[2022-07-21] MEDS: MULTIVITAMINS WITH MINERALS, THERAPEUTIC TABLET PO SCH (08:32)
[2022-07-21] MEDS: THIAMINE 100 MG TABLET PO SCH (08:32)
[2022-07-21] MEDS: DOCUSATE SODIUM 100 MG/10 ML LIQUID UDCUP NG SCH ×2 (08:32→20:11)
[2022-07-21] MEDS: FOLIC ACID 1 MG TABLET PO SCH (08:33)
[2022-07-21] MEDS: [UNRECOGNIZED DRUG - REMARK] IV SCH ×4 (10:10)
[2022-07-21 12:00] VITALS: BP 152/93
[2022-07-21 16:00] VITALS: BP 137/79
[2022-07-21 20:00] VITALS: BP 133/70
[2022-07-21] MEDS ORDERED: SODIUM CHLORIDE 0.9% 250 ML IV ONE (20:08)
[2022-07-21] MEDS: MAGNESIUM HYDROXIDE SUSPENSION 30 ML UDCUP PO PRN (21:23)
[2022-07-22] VITALS: BP 119/67
[2022-07-22] MEDS: HEPARIN SODIUM,PORCINE 5,000 UNITS/ML VIAL SQ SCH ×3 (00:08→16:06)
[2022-07-22] MEDS: ChlordiazePOXIDE HCL 25 MG CAPSULE PO SCH ×4 (00:08→19:50)
[2022-07-22] MEDS: PROPOFOL 1000 MG/ISO-OSM 100 ML IV PRN ×2 (03:28→07:14)
[2022-07-22 04:00] VITALS: BP 104/63
[2022-07-22] MEDS: AMPICILLIN SODIUM/SULBACTAM NA 1.5 GM in SODIUM CHLORIDE 0.9% 50 ML IV SCH ×4 (05:07→23:22)
[2022-07-22 05:39] LABS: BASOPHILS % (AUTO) 0.7 % (0.0-2.0); EOSINOPHILS % (AUTO) 1.3 % (1.0-6.0); HEMATOCRIT 27.6 % (36-46); HEMOGLOBIN 9.3 g/dL (12.0-16.0); LYMPHOCYTES # (AUTO) 1.4 K/uL (1.0-4.8); LYMPHOCYTES % (AUTO) 15.4 % (22.0-44.0); MEAN CORPUSCULAR HEMOGLOBIN 33.9 pg (26.0-34.0); MEAN CORPUSCULAR HGB CONC 33.6 G/dL (31.0-37.0); MEAN CORPUSCULAR VOLUME 101 fL (80-100); MONOCYTES % (AUTO) 10.4 % (2.0-9.0); NEUTROPHILS # (AUTO) 6.7 K/uL (1.8-7.7); NEUTROPHILS % (AUTO) 72.2 % (40.0-70.0); PLATELET COUNT (AUTO) 295 K/uL (150-450); RED BLOOD CELL COUNT(AUTO) 2.73 MIL/uL (4.00-5.20); RED CELL DISTRIBUTION WIDTH 16.4 % (11.5-14.5)
[2022-07-22 05:55] LABS: ALANINE AMINOTRANSFERASE 34 U/L (12-78); ALBUMIN 2.2 g/dL (3.4-5.0); ALKALINE PHOSPHATASE 44 U/L (46-116); ANION GAP 8 mmol/L (8-16); ASPARTATE AMINOTRANSFERASE 39 U/L (15-37); BILIRUBIN,TOTAL 0.2 mg/dL (0.1-1.0); CALCIUM, TOTAL 8.4 mg/dL (8.8-10.5); CARBON DIOXIDE 32 mmol/L (22-29); CHLORIDE 102 mmol/L (98-107); CREATININE 0.43 mg/dL (0.60-1.30); GLUCOSE,RANDOM 103 mg/dL (70-110); POTASSIUM 3.8 mmol/L (3.5-5.1); SODIUM SERUM 142 mmol/L (136-145); TOTAL PROTEIN, SERUM 6.1 g/dL (6.4-8.2); UREA NITROGEN, BLOOD 9 mg/dL (7-18)
[2022-07-22 05:56] LABS: GLOMERULAR FILTR. RATE CALC > 60 mL/min (>60)
[2022-07-22] MEDS: [UNRECOGNIZED DRUG - REMARK] IV SCH ×4 (06:47)
[2022-07-22] MEDS: DEXMEDETOMIDINE HCL 400 MCG in SODIUM CHLORIDE 0.9% 96 ML IV PRN (07:33)
[2022-07-22] MEDS: PANTOPRAZOLE SODIUM 40 MG/VIAL IVP SCH (07:58)
[2022-07-22] MEDS: PROPRANOLOL HCL 60 MG ER CAPSULE PO SCH (07:58)
[2022-07-22] MEDS: MULTIVITAMINS WITH MINERALS, THERAPEUTIC TABLET PO SCH (07:58)
[2022-07-22] MEDS: THIAMINE 100 MG TABLET PO SCH (07:59)
[2022-07-22] MEDS: FOLIC ACID 1 MG TABLET PO SCH (07:59)
[2022-07-22 08:00] VITALS: BP 103/63
[2022-07-22] MEDS: DOCUSATE SODIUM 100 MG/10 ML LIQUID UDCUP NG SCH ×2 (08:05→19:49)
[2022-07-22] MEDS: FentaNYL CIT 1000MCG/0.9% NACL 100 ML IV PRN (08:38)
[2022-07-22] MEDS: DEXAMETHASONE SOD PHOS 4 MG/ML VIAL IVP SCH ×2 (09:06→19:49)
[2022-07-22 12:00] VITALS: BP 145/89
[2022-07-22] MEDS ORDERED: ACETAMINOPHEN 650 MG/20.3 ML SOLUTION UDCUP NG ONE (12:30)
[2022-07-22] MEDS: LORazepam 2 MG/ML VIAL IVP PRN (14:58)
[2022-07-22 16:00] VITALS: BP 138/70
[2022-07-22 19:23] LABS: ABG BASE EXCESS 7.2 mmol/L (-2.0-3.0); ABG CARBOXYHEMOGLOBIN 0.3 % (0.0-1.5); ABG HCO3 30.5 mmol/L (22.0-26.0); ABG METHEMOGLOBIN 0.3 % (0.0-1.5); ABG OXYGEN CONTENT 14.8 mL/dL (15.0-23.0); ABG OXYGEN SATURATION 97.7 % (95.0-98.0); ABG OXYHEMOGLOBIN 97.1 % (94.0-100.0); ABG PCO2 42 mmHg (35-45); ABG PH 7.481 (7.35-7.450); ABG TOTAL HEMOGLOBIN 10.7 G/dL (12.0-18.0); O2 DEVICE,BLOOD GAS CANNULA (ROOM AIR); PO2, ARTERIAL BG 103.4 mmHg (88.0-96.0); SOURCE, BLOOD GAS ARTERIAL; TEMPERATURE, FAHRENHEIT, BG 98.6 FAHREN (96.0-98.6)
[2022-07-22] MEDS: BENZONATATE 100 MG CAPSULE PO PRN (19:49)
[2022-07-22] MEDS: ACETAMINOPHEN 650 MG/20.3 ML SOLUTION UDCUP NG PRN (19:49)
[2022-07-22 20:00] VITALS: BP 128/77
[2022-07-23] VITALS: BP 119/66
[2022-07-23] MEDS: HEPARIN SODIUM,PORCINE 5,000 UNITS/ML VIAL SQ SCH ×3 (00:01→15:48)
[2022-07-23] MEDS: [UNRECOGNIZED DRUG - REMARK] IV SCH ×8 (02:30→22:27)
[2022-07-23 04:00] VITALS: BP 124/55
[2022-07-23] MEDS: BENZONATATE 100 MG CAPSULE PO PRN (04:31)
[2022-07-23] MEDS: ACETAMINOPHEN 650 MG/20.3 ML SOLUTION UDCUP NG PRN ×3 (04:31→17:52)
[2022-07-23] MEDS: AMPICILLIN SODIUM/SULBACTAM NA 1.5 GM in SODIUM CHLORIDE 0.9% 50 ML IV SCH ×4 (06:57→22:27)
[2022-07-23] MEDS: ChlordiazePOXIDE HCL 25 MG CAPSULE PO SCH ×3 (07:00→21:32)
[2022-07-23 08:00] VITALS: BP 135/93
[2022-07-23] MEDS: PROPRANOLOL HCL 60 MG ER CAPSULE PO SCH (08:24)
[2022-07-23] MEDS: FOLIC ACID 1 MG TABLET PO SCH (08:24)
[2022-07-23] MEDS: THIAMINE 100 MG TABLET PO SCH (08:24)
[2022-07-23] MEDS: DEXAMETHASONE SOD PHOS 4 MG/ML VIAL IVP SCH (08:24)
[2022-07-23] MEDS: DOCUSATE SODIUM 100 MG/10 ML LIQUID UDCUP NG SCH ×2 (08:24→21:32)
[2022-07-23] MEDS: PANTOPRAZOLE SODIUM 40 MG/VIAL IVP SCH (08:24)
[2022-07-23] MEDS: MULTIVITAMINS WITH MINERALS, THERAPEUTIC TABLET PO SCH (08:25)
[2022-07-23 08:26] LABS: BASOPHILS % (AUTO) 0.5 % (0.0-2.0); EOSINOPHILS % (AUTO) 1.5 % (1.0-6.0); HEMATOCRIT 34.2 % (36-46); HEMOGLOBIN 11.3 g/dL (12.0-16.0); LYMPHOCYTES # (AUTO) 1.8 K/uL (1.0-4.8); LYMPHOCYTES % (AUTO) 17.3 % (22.0-44.0); MEAN CORPUSCULAR HEMOGLOBIN 33.5 pg (26.0-34.0); MEAN CORPUSCULAR HGB CONC 33.1 G/dL (31.0-37.0); MEAN CORPUSCULAR VOLUME 101 fL (80-100); MONOCYTES # (AUTO) 0.9 K/uL (0.1-1.0); MONOCYTES % (AUTO) 8.4 % (2.0-9.0); NEUTROPHILS # (AUTO) 7.5 K/uL (1.8-7.7); NEUTROPHILS % (AUTO) 72.3 % (40.0-70.0); PLATELET COUNT (AUTO) 327 K/uL (150-450); RED BLOOD CELL COUNT(AUTO) 3.38 MIL/uL (4.00-5.20); RED CELL DISTRIBUTION WIDTH 16.6 % (11.5-14.5)
[2022-07-23 08:37] LABS: ANION GAP 7 mmol/L (8-16); CALCIUM, TOTAL 9.2 mg/dL (8.8-10.5); CARBON DIOXIDE 34 mmol/L (22-29); CHLORIDE 101 mmol/L (98-107); CREATININE 0.63 mg/dL (0.60-1.30); GLOMERULAR FILTR. RATE CALC > 60 mL/min (>60); GLUCOSE,RANDOM 96 mg/dL (70-110); PHOSPHORUS 4.3 mg/dL (2.5-4.9); POTASSIUM 3.6 mmol/L (3.5-5.1); SODIUM SERUM 142 mmol/L (136-145); UREA NITROGEN, BLOOD 6 mg/dL (7-18)
[2022-07-23] MEDS ORDERED: SODIUM CHLORIDE 0.9% 250 ML IV ONE (10:38)
[2022-07-23 12:00] VITALS: BP 130/80
[2022-07-23] MEDS ORDERED: POTASSIUM CHLORIDE 10% 40 MEQ/30 ML LIQUID UDCUP NG PRN ×2 (13:00)
[2022-07-23 16:00] VITALS: BP 124/77
[2022-07-23 16:47] LABS: APPEARANCE,URINE CLEAR (CLEAR); BILIRUBIN,URINE NEGATIVE (NEGATIVE); GLUCOSE, URINE (UA) NEGATIVE (NEGATIVE); KETONES,URINE NEGATIVE (NEGATIVE); LEUKOCYTE ESTERASE ,URINE NEGATIVE (NEGATIVE); NITRATE,URINE NEGATIVE (NEGATIVE); OCCULT BLOOD,URINE NEGATIVE (NEGATIVE); PROTEIN,URINE NEGATIVE (NEGATIVE); SPECIFIC GRAVITIY, URINE 1.013 (1.003-1.030); UROBILINOGEN,URINE <=1.0 mg/dL (<=1.0)
[2022-07-23] MEDS: MAGNESIUM HYDROXIDE SUSPENSION 30 ML UDCUP PO PRN (17:33)
[2022-07-23 20:00] VITALS: BP 119/83
[2022-07-24] VITALS: BP 128/90
[2022-07-24] MEDS: HEPARIN SODIUM,PORCINE 5,000 UNITS/ML VIAL SQ SCH ×3 (00:14→17:54)
[2022-07-24] MEDS: ACETAMINOPHEN 650 MG/20.3 ML SOLUTION UDCUP NG PRN ×4 (00:14→18:51)
[2022-07-24 04:00] VITALS: BP 123/83
[2022-07-24] MEDS: AMPICILLIN SODIUM/SULBACTAM NA 1.5 GM in SODIUM CHLORIDE 0.9% 50 ML IV SCH ×4 (04:30→23:12)
[2022-07-24 08:00] VITALS: BP 130/84
[2022-07-24] MEDS: MULTIVITAMINS WITH MINERALS, THERAPEUTIC TABLET PO SCH (08:19)
[2022-07-24] MEDS: THIAMINE 100 MG TABLET PO SCH (08:20)
[2022-07-24] MEDS: ChlordiazePOXIDE HCL 25 MG CAPSULE PO SCH ×2 (08:20→21:20)
[2022-07-24] MEDS: DOCUSATE SODIUM 100 MG/10 ML LIQUID UDCUP NG SCH ×2 (08:20→21:00)
[2022-07-24] MEDS: PROPRANOLOL HCL 60 MG ER CAPSULE PO SCH (08:20)
[2022-07-24] MEDS: FOLIC ACID 1 MG TABLET PO SCH (08:20)
[2022-07-24] MEDS: PANTOPRAZOLE SODIUM 40 MG/VIAL IVP SCH (08:33)
[2022-07-24 12:00] VITALS: BP 143/86
[2022-07-24 16:00] VITALS: BP 127/103
[2022-07-24] MEDS: [UNRECOGNIZED DRUG - REMARK] IV SCH ×4 (18:48)
[2022-07-24 20:00] VITALS: BP 106/75
[2022-07-24] MEDS: LORazepam 2 MG/ML VIAL IVP PRN (22:45)
[2022-07-25] VITALS (7 sets, daily range): BP systolic 107–136; BP diastolic 76–100
[2022-07-25] MEDS: ACETAMINOPHEN 650 MG/20.3 ML SOLUTION UDCUP NG PRN ×4 (01:43→23:03)
[2022-07-25] MEDS: LORazepam 2 MG/ML VIAL IVP PRN ×8 (01:44→23:03)
[2022-07-25] MEDS: AMPICILLIN SODIUM/SULBACTAM NA 1.5 GM in SODIUM CHLORIDE 0.9% 50 ML IV SCH ×2 (04:38→10:29)
[2022-07-25 06:13] LABS: EOSINOPHILS % (AUTO) 2.6 % (1.0-6.0); HEMATOCRIT 33.2 % (36-46); HEMOGLOBIN 11.1 g/dL (12.0-16.0); LYMPHOCYTES # (AUTO) 1.5 K/uL (1.0-4.8); LYMPHOCYTES % (AUTO) 13.7 % (22.0-44.0); MEAN CORPUSCULAR HEMOGLOBIN 33.5 pg (26.0-34.0); MEAN CORPUSCULAR HGB CONC 33.5 G/dL (31.0-37.0); MEAN CORPUSCULAR VOLUME 100 fL (80-100); MONOCYTES # (AUTO) 0.9 K/uL (0.1-1.0); NEUTROPHILS # (AUTO) 8.2 K/uL (1.8-7.7); NEUTROPHILS % (AUTO) 74.7 % (40.0-70.0); PLATELET COUNT (AUTO) 343 K/uL (150-450); RED BLOOD CELL COUNT(AUTO) 3.32 MIL/uL (4.00-5.20); RED CELL DISTRIBUTION WIDTH 16.7 % (11.5-14.5)
[2022-07-25 06:25] LABS: ANION GAP 5 mmol/L (8-16); C-REACTIVE PROTEIN QUANT 1.77 mg/dL (0.00-0.30); CALCIUM, TOTAL 9.4 mg/dL (8.8-10.5); CARBON DIOXIDE 30 mmol/L (22-29); CHLORIDE 102 mmol/L (98-107); CREATININE 0.64 mg/dL (0.60-1.30); GLUCOSE,RANDOM 113 mg/dL (70-110); POTASSIUM 3.3 mmol/L (3.5-5.1); SODIUM SERUM 137 mmol/L (136-145); UREA NITROGEN, BLOOD 9 mg/dL (7-18)
[2022-07-25 06:26] LABS: GLOMERULAR FILTR. RATE CALC > 60 mL/min (>60)
[2022-07-25] MEDS ORDERED: IOHEXOL 350 MG/ML 100 ML VIAL ONE (07:41)
[2022-07-25] MEDS ORDERED: SODIUM CHLORIDE 0.9% 100 ML ONE (07:41)
[2022-07-25] MEDS: PANTOPRAZOLE SODIUM 40 MG/VIAL IVP SCH (08:14)
[2022-07-25] MEDS: DOCUSATE SODIUM 100 MG/10 ML LIQUID UDCUP NG SCH ×2 (08:14→20:37)
[2022-07-25] MEDS: THIAMINE 100 MG TABLET PO SCH (08:15)
[2022-07-25] MEDS: ChlordiazePOXIDE HCL 25 MG CAPSULE PO SCH ×2 (08:15→20:37)
[2022-07-25] MEDS: PROPRANOLOL HCL 60 MG ER CAPSULE PO SCH (08:15)
[2022-07-25] MEDS: FOLIC ACID 1 MG TABLET PO SCH (08:15)
[2022-07-25] MEDS: HEPARIN SODIUM,PORCINE 5,000 UNITS/ML VIAL SQ SCH ×4 (08:15→23:03)
[2022-07-25] MEDS: MULTIVITAMINS WITH MINERALS, THERAPEUTIC TABLET PO SCH (08:15)
[2022-07-25] MEDS: [UNRECOGNIZED DRUG - REMARK] IV SCH ×4 (16:00)
[2022-07-25] MEDS: LEVOFLOXACIN 750 MG/D5% WATER 150 ML IV SCH (16:34)
[2022-07-25] MEDS: MetroNIDAZOLE 500 MG TABLET PO SCH ×2 (16:35→23:03)
[2022-07-26] MEDS: LORazepam 2 MG/ML VIAL IVP PRN ×3 (01:45→15:40)
[2022-07-26 04:00] VITALS: BP 122/83
[2022-07-26 05:59] LABS: BASOPHILS % (AUTO) 0.7 % (0.0-2.0); HEMATOCRIT 33.3 % (36-46); LYMPHOCYTES # (AUTO) 1.5 K/uL (1.0-4.8); LYMPHOCYTES % (AUTO) 14.2 % (22.0-44.0); MEAN CORPUSCULAR HEMOGLOBIN 33.3 pg (26.0-34.0); MEAN CORPUSCULAR HGB CONC 33.1 G/dL (31.0-37.0); MEAN CORPUSCULAR VOLUME 101 fL (80-100); MONOCYTES # (AUTO) 0.8 K/uL (0.1-1.0); MONOCYTES % (AUTO) 7.5 % (2.0-9.0); NEUTROPHILS # (AUTO) 7.7 K/uL (1.8-7.7); NEUTROPHILS % (AUTO) 74.6 % (40.0-70.0); PLATELET COUNT (AUTO) 342 K/uL (150-450); RED BLOOD CELL COUNT(AUTO) 3.31 MIL/uL (4.00-5.20); RED CELL DISTRIBUTION WIDTH 17.1 % (11.5-14.5)
[2022-07-26 06:07] LABS: ANION GAP 10 mmol/L (8-16); CALCIUM, TOTAL 9.4 mg/dL (8.8-10.5); CARBON DIOXIDE 25 mmol/L (22-29); CHLORIDE 102 mmol/L (98-107); CREATININE 0.49 mg/dL (0.60-1.30); GLUCOSE,RANDOM 119 mg/dL (70-110); POTASSIUM 3.8 mmol/L (3.5-5.1); SODIUM SERUM 137 mmol/L (136-145); UREA NITROGEN, BLOOD 10 mg/dL (7-18)
[2022-07-26 06:08] LABS: GLOMERULAR FILTR. RATE CALC > 60 mL/min (>60)
[2022-07-26 08:00] VITALS: BP 112/76
[2022-07-26] MEDS: PANTOPRAZOLE SODIUM 40 MG/VIAL IVP SCH (08:13)
[2022-07-26] MEDS: PROPRANOLOL HCL 60 MG ER CAPSULE PO SCH (08:13)
[2022-07-26] MEDS: MULTIVITAMINS WITH MINERALS, THERAPEUTIC TABLET PO SCH (08:13)
[2022-07-26] MEDS: MetroNIDAZOLE 500 MG TABLET PO SCH (08:13)
[2022-07-26] MEDS: THIAMINE 100 MG TABLET PO SCH (08:13)
[2022-07-26] MEDS: FOLIC ACID 1 MG TABLET PO SCH (08:13)
[2022-07-26] MEDS: DOCUSATE SODIUM 100 MG/10 ML LIQUID UDCUP NG SCH ×2 (08:13→21:00)
[2022-07-26] MEDS: HEPARIN SODIUM,PORCINE 5,000 UNITS/ML VIAL SQ SCH ×2 (08:13→15:40)
[2022-07-26] MEDS: ChlordiazePOXIDE HCL 25 MG CAPSULE PO SCH ×2 (08:16→21:00)
[2022-07-26] MEDS: [UNRECOGNIZED DRUG - REMARK] IV SCH ×4 (11:06)
[2022-07-26 12:00] VITALS: BP 114/81
[2022-07-26] MEDS: LEVOFLOXACIN 750 MG/D5% WATER 150 ML IV SCH (15:40)
[2022-07-26 16:00] VITALS: BP 130/69
[2022-07-26] MEDS ORDERED: SODIUM CHLORIDE 0.9% 100 ML ONE (16:02)
[2022-07-26] MEDS ORDERED: IOHEXOL 350 MG/ML 100 ML VIAL ONE (16:02)
[2022-07-26] MEDS: MetroNIDAZOLE 500 MG/NACL 100 ML IV SCH (17:20)
[2022-07-26 20:01] VITALS: BP 117/75
[2022-07-27] VITALS (7 sets, daily range): BP systolic 109–127; BP diastolic 68–77
[2022-07-27] MEDS: MetroNIDAZOLE 500 MG/NACL 100 ML IV SCH ×3 (01:49→17:21)
[2022-07-27] MEDS: HEPARIN SODIUM,PORCINE 5,000 UNITS/ML VIAL SQ SCH ×3 (01:49→16:25)
[2022-07-27 07:42] LABS: BASOPHILS % (AUTO) 0.9 % (0.0-2.0); EOSINOPHILS % (AUTO) 2.9 % (1.0-6.0); HEMATOCRIT 33.7 % (36-46); HEMOGLOBIN 11.4 g/dL (12.0-16.0); LYMPHOCYTES # (AUTO) 1.2 K/uL (1.0-4.8); LYMPHOCYTES % (AUTO) 13.9 % (22.0-44.0); MEAN CORPUSCULAR HEMOGLOBIN 33.9 pg (26.0-34.0); MEAN CORPUSCULAR HGB CONC 33.9 G/dL (31.0-37.0); MEAN CORPUSCULAR VOLUME 100 fL (80-100); MONOCYTES # (AUTO) 0.6 K/uL (0.1-1.0); MONOCYTES % (AUTO) 7.2 % (2.0-9.0); NEUTROPHILS # (AUTO) 6.5 K/uL (1.8-7.7); NEUTROPHILS % (AUTO) 75.1 % (40.0-70.0); PLATELET COUNT (AUTO) 321 K/uL (150-450); RED BLOOD CELL COUNT(AUTO) 3.38 MIL/uL (4.00-5.20); RED CELL DISTRIBUTION WIDTH 16.6 % (11.5-14.5)
[2022-07-27] MEDS: [UNRECOGNIZED DRUG - REMARK] IV SCH ×4 (08:32)
[2022-07-27] MEDS: PANTOPRAZOLE SODIUM 40 MG/VIAL IVP SCH (08:33)
[2022-07-27] MEDS: DOCUSATE SODIUM 100 MG/10 ML LIQUID UDCUP NG SCH ×2 (09:00→21:00)
[2022-07-27] MEDS: THIAMINE 100 MG TABLET PO SCH (09:00)
[2022-07-27] MEDS: PROPRANOLOL HCL 60 MG ER CAPSULE PO SCH (09:00)
[2022-07-27] MEDS: ChlordiazePOXIDE HCL 25 MG CAPSULE PO SCH ×2 (09:00→21:00)
[2022-07-27] MEDS: FOLIC ACID 1 MG TABLET PO SCH (09:00)
[2022-07-27] MEDS: MULTIVITAMINS WITH MINERALS, THERAPEUTIC TABLET PO SCH (09:00)
[2022-07-27] MEDS: LORazepam 2 MG/ML VIAL IVP PRN (16:17)
[2022-07-27] MEDS: LEVOFLOXACIN 750 MG/D5% WATER 150 ML IV SCH (16:25)
[2022-07-28] MEDS: LORazepam 2 MG/ML VIAL IVP PRN (00:24)
[2022-07-28] MEDS: MetroNIDAZOLE 500 MG/NACL 100 ML IV SCH ×3 (01:00→17:41)
[2022-07-28] MEDS: HEPARIN SODIUM,PORCINE 5,000 UNITS/ML VIAL SQ SCH ×4 (01:45→23:48)
[2022-07-28] MEDS: [UNRECOGNIZED DRUG - REMARK] IV SCH ×4 (05:04)
[2022-07-28 05:30] VITALS: BP 124/73
[2022-07-28 08:01] VITALS: BP 126/75
[2022-07-28] MEDS: DOCUSATE SODIUM 100 MG/10 ML LIQUID UDCUP NG SCH ×2 (09:00→21:00)
[2022-07-28] MEDS ORDERED: SODIUM CHLORIDE 0.9% 500 ML IV ONE (10:28)
[2022-07-28] MEDS: PANTOPRAZOLE SODIUM 40 MG/VIAL IVP SCH (10:32)
[2022-07-28] MEDS: FOLIC ACID 1 MG TABLET PO SCH (10:32)
[2022-07-28] MEDS: MULTIVITAMINS WITH MINERALS, THERAPEUTIC TABLET PO SCH (10:33)
[2022-07-28] MEDS: ChlordiazePOXIDE HCL 25 MG CAPSULE PO SCH ×2 (10:33→20:59)
[2022-07-28] MEDS: THIAMINE 100 MG TABLET PO SCH (10:33)
[2022-07-28] MEDS: PROPRANOLOL HCL 60 MG ER CAPSULE PO SCH (10:33)
[2022-07-28 11:47] LABS: BASOPHILS % (AUTO) 0.9 % (0.0-2.0); EOSINOPHILS % (AUTO) 2.4 % (1.0-6.0); HEMATOCRIT 33.1 % (36-46); HEMOGLOBIN 11.2 g/dL (12.0-16.0); LYMPHOCYTES # (AUTO) 1.1 K/uL (1.0-4.8); MEAN CORPUSCULAR HEMOGLOBIN 33.6 pg (26.0-34.0); MEAN CORPUSCULAR HGB CONC 33.7 G/dL (31.0-37.0); MEAN CORPUSCULAR VOLUME 100 fL (80-100); MONOCYTES # (AUTO) 0.5 K/uL (0.1-1.0); MONOCYTES % (AUTO) 7.4 % (2.0-9.0); NEUTROPHILS # (AUTO) 5.6 K/uL (1.8-7.7); NEUTROPHILS % (AUTO) 74.3 % (40.0-70.0); PLATELET COUNT (AUTO) 321 K/uL (150-450); RED BLOOD CELL COUNT(AUTO) 3.32 MIL/uL (4.00-5.20); RED CELL DISTRIBUTION WIDTH 16.3 % (11.5-14.5)
[2022-07-28 12:04] VITALS: BP 118/74
[2022-07-28 12:24] LABS: ANION GAP 9 mmol/L (8-16); CARBON DIOXIDE 27 mmol/L (22-29); CHLORIDE 98 mmol/L (98-107); CREATININE 0.56 mg/dL (0.60-1.30); GLUCOSE,RANDOM 95 mg/dL (70-110); POTASSIUM 3.6 mmol/L (3.5-5.1); SODIUM SERUM 134 mmol/L (136-145); UREA NITROGEN, BLOOD 8 mg/dL (7-18)
[2022-07-28 12:26] LABS: GLOMERULAR FILTR. RATE CALC > 60 mL/min (>60)
[2022-07-28] MEDS: LEVOFLOXACIN 750 MG/D5% WATER 150 ML IV SCH (16:03)
[2022-07-28 16:07] LABS: C-REACTIVE PROTEIN QUANT 4.32 mg/dL (0.00-0.30)
[2022-07-28 16:24] VITALS: BP 109/70
[2022-07-28 20:01] VITALS: BP 118/68
[2022-07-29] MEDS: MetroNIDAZOLE 500 MG/NACL 100 ML IV SCH ×3 (00:06→17:40)
[2022-07-29 00:09] VITALS: BP 133/82
[2022-07-29] MEDS: [UNRECOGNIZED DRUG - REMARK] IV SCH ×4 (02:59)
[2022-07-29] MEDS: POTASSIUM CHL 10 MEQ/WATER 50 ML IV PRN ×3 (02:59→05:16)
[2022-07-29 04:42] VITALS: BP 118/80
[2022-07-29 08:27] VITALS: BP 122/79
[2022-07-29] MEDS: DOCUSATE SODIUM 100 MG/10 ML LIQUID UDCUP NG SCH ×2 (09:00→21:00)
[2022-07-29] MEDS: PANTOPRAZOLE SODIUM 40 MG/VIAL IVP SCH (09:25)
[2022-07-29] MEDS: HEPARIN SODIUM,PORCINE 5,000 UNITS/ML VIAL SQ SCH ×3 (09:25→23:05)
[2022-07-29] MEDS: ChlordiazePOXIDE HCL 25 MG CAPSULE PO SCH (09:25)
[2022-07-29] MEDS: PROPRANOLOL HCL 60 MG ER CAPSULE PO SCH (09:25)
[2022-07-29] MEDS: MULTIVITAMINS WITH MINERALS, THERAPEUTIC TABLET PO SCH (09:26)
[2022-07-29] MEDS: THIAMINE 100 MG TABLET PO SCH (09:26)
[2022-07-29] MEDS: FOLIC ACID 1 MG TABLET PO SCH (09:26)
[2022-07-29 12:01] VITALS: BP 109/71
[2022-07-29] MEDS: LEVOFLOXACIN 750 MG/D5% WATER 150 ML IV SCH (15:47)
[2022-07-29 16:00] VITALS: BP 106/70
[2022-07-29] MEDS: DIAZEPAM 5 MG TABLET PO SCH (19:59)
[2022-07-29 20:10] VITALS: BP 137/88
[2022-07-29] MEDS: OLANZapine 5 MG RAPDIS TABLET PO SCH (21:12)
[2022-07-29] MEDS: LORazepam 2 MG/ML VIAL IVP PRN (22:55)
[2022-07-30 00:55] VITALS: BP 115/76
[2022-07-30] MEDS: MetroNIDAZOLE 500 MG/NACL 100 ML IV SCH ×2 (01:03→09:00)
[2022-07-30 04:35] VITALS: BP_SYST 118; BP_DIAS 75; BP_DIAS 76
[2022-07-30] MEDS: LORazepam 2 MG/ML VIAL IVP PRN ×2 (06:21→21:06)
[2022-07-30 07:17] LABS: BASOPHILS % (AUTO) 1.1 % (0.0-2.0); EOSINOPHILS % (AUTO) 3.7 % (1.0-6.0); HEMATOCRIT 34.4 % (36-46); HEMOGLOBIN 11.6 g/dL (12.0-16.0); LYMPHOCYTES # (AUTO) 1.4 K/uL (1.0-4.8); LYMPHOCYTES % (AUTO) 18.6 % (22.0-44.0); MEAN CORPUSCULAR HEMOGLOBIN 33.3 pg (26.0-34.0); MEAN CORPUSCULAR HGB CONC 33.6 G/dL (31.0-37.0); MEAN CORPUSCULAR VOLUME 99 fL (80-100); MONOCYTES # (AUTO) 0.7 K/uL (0.1-1.0); MONOCYTES % (AUTO) 8.9 % (2.0-9.0); NEUTROPHILS # (AUTO) 5.1 K/uL (1.8-7.7); NEUTROPHILS % (AUTO) 67.7 % (40.0-70.0); PLATELET COUNT (AUTO) 331 K/uL (150-450); RED BLOOD CELL COUNT(AUTO) 3.47 MIL/uL (4.00-5.20); RED CELL DISTRIBUTION WIDTH 16.1 % (11.5-14.5)
[2022-07-30 07:24] LABS: ALANINE AMINOTRANSFERASE 59 U/L (12-78); ALBUMIN 3.3 g/dL (3.4-5.0); ALKALINE PHOSPHATASE 64 U/L (46-116); ANION GAP 14 mmol/L (8-16); ASPARTATE AMINOTRANSFERASE 49 U/L (15-37); BILIRUBIN,TOTAL 0.5 mg/dL (0.1-1.0); C-REACTIVE PROTEIN QUANT 4.65 mg/dL (0.00-0.30); CALCIUM, TOTAL 9.3 mg/dL (8.8-10.5); CARBON DIOXIDE 24 mmol/L (22-29); CHLORIDE 100 mmol/L (98-107); CREATININE 0.53 mg/dL (0.60-1.30); GLUCOSE,RANDOM 85 mg/dL (70-110); POTASSIUM 3.6 mmol/L (3.5-5.1); SODIUM SERUM 138 mmol/L (136-145); TOTAL PROTEIN, SERUM 8.1 g/dL (6.4-8.2); UREA NITROGEN, BLOOD 7 mg/dL (7-18)
[2022-07-30 07:30] LABS: GLOMERULAR FILTR. RATE CALC > 60 mL/min (>60)
[2022-07-30 08:17] VITALS: BP 117/76
[2022-07-30] MEDS: PANTOPRAZOLE SODIUM 40 MG/VIAL IVP SCH (08:57)
[2022-07-30] MEDS: PROPRANOLOL HCL 60 MG ER CAPSULE PO SCH (08:57)
[2022-07-30] MEDS: THIAMINE 100 MG TABLET PO SCH (08:57)
[2022-07-30] MEDS: DIAZEPAM 5 MG TABLET PO SCH ×4 (08:57→21:06)
[2022-07-30] MEDS: FOLIC ACID 1 MG TABLET PO SCH (08:57)
[2022-07-30] MEDS: DOCUSATE SODIUM 100 MG/10 ML LIQUID UDCUP NG SCH ×2 (08:57→21:00)
[2022-07-30] MEDS: MULTIVITAMINS WITH MINERALS, THERAPEUTIC TABLET PO SCH (08:59)
[2022-07-30] MEDS: HEPARIN SODIUM,PORCINE 5,000 UNITS/ML VIAL SQ SCH ×2 (09:01→16:40)
[2022-07-30 12:07] VITALS: BP 131/88
[2022-07-30] MEDS: LEVOFLOXACIN 750 MG/D5% WATER 150 ML IV SCH (16:40)
[2022-07-30 17:00] VITALS: BP 131/75
[2022-07-30 20:00] VITALS: BP 130/79
[2022-07-30] MEDS: OLANZapine 5 MG RAPDIS TABLET PO SCH (21:06)
[2022-07-31] VITALS: BP 121/98
[2022-07-31] MEDS: HEPARIN SODIUM,PORCINE 5,000 UNITS/ML VIAL SQ SCH ×4 (00:14→23:39)
[2022-07-31 05:10] VITALS: BP 118/76
[2022-07-31 07:39] VITALS: BP 127/87
[2022-07-31] MEDS: PROPRANOLOL HCL 60 MG ER CAPSULE PO SCH (10:15)
[2022-07-31] MEDS: DIAZEPAM 5 MG TABLET PO SCH ×3 (10:16→22:04)
[2022-07-31] MEDS: OLANZapine 5 MG RAPDIS TABLET PO SCH (10:16)
[2022-07-31] MEDS: THIAMINE 100 MG TABLET PO SCH (10:16)
[2022-07-31] MEDS: FOLIC ACID 1 MG TABLET PO SCH (10:16)
[2022-07-31] MEDS: PANTOPRAZOLE SODIUM 40 MG/VIAL IVP SCH (10:16)
[2022-07-31] MEDS: MULTIVITAMINS WITH MINERALS, THERAPEUTIC TABLET PO SCH (10:16)
[2022-07-31] MEDS: DOCUSATE SODIUM 100 MG/10 ML LIQUID UDCUP NG SCH ×2 (10:17→22:04)
[2022-07-31 11:38] VITALS: BP 127/86
[2022-07-31 15:33] VITALS: BP 132/89
[2022-07-31] MEDS: LORazepam 2 MG/ML VIAL IVP PRN (18:00)
[2022-07-31 20:04] VITALS: BP 122/98
[2022-08-01] VITALS (7 sets, daily range): BP systolic 115–139; BP diastolic 74–118
[2022-08-01 06:12] LABS: BASOPHILS % (AUTO) 1.3 % (0.0-2.0); EOSINOPHILS % (AUTO) 4.2 % (1.0-6.0); HEMATOCRIT 34.4 % (36-46); HEMOGLOBIN 11.6 g/dL (12.0-16.0); LYMPHOCYTES # (AUTO) 1.2 K/uL (1.0-4.8); LYMPHOCYTES % (AUTO) 20.9 % (22.0-44.0); MEAN CORPUSCULAR HEMOGLOBIN 33.1 pg (26.0-34.0); MEAN CORPUSCULAR HGB CONC 33.9 G/dL (31.0-37.0); MEAN CORPUSCULAR VOLUME 98 fL (80-100); MONOCYTES # (AUTO) 0.6 K/uL (0.1-1.0); MONOCYTES % (AUTO) 9.9 % (2.0-9.0); NEUTROPHILS # (AUTO) 3.6 K/uL (1.8-7.7); NEUTROPHILS % (AUTO) 63.7 % (40.0-70.0); PLATELET COUNT (AUTO) 303 K/uL (150-450); RED BLOOD CELL COUNT(AUTO) 3.51 MIL/uL (4.00-5.20); RED CELL DISTRIBUTION WIDTH 16.1 % (11.5-14.5)
[2022-08-01 06:29] LABS: ALANINE AMINOTRANSFERASE 40 U/L (12-78); ALBUMIN 3.1 g/dL (3.4-5.0); ALKALINE PHOSPHATASE 61 U/L (46-116); ANION GAP 12 mmol/L (8-16); ASPARTATE AMINOTRANSFERASE 29 U/L (15-37); BILIRUBIN,TOTAL 0.4 mg/dL (0.1-1.0); C-REACTIVE PROTEIN QUANT 5.11 mg/dL (0.00-0.30); CARBON DIOXIDE 27 mmol/L (22-29); CHLORIDE 100 mmol/L (98-107); CREATININE 0.55 mg/dL (0.60-1.30); GLUCOSE,RANDOM 110 mg/dL (70-110); POTASSIUM 3.4 mmol/L (3.5-5.1); SODIUM SERUM 139 mmol/L (136-145); TOTAL PROTEIN, SERUM 7.6 g/dL (6.4-8.2); UREA NITROGEN, BLOOD 10 mg/dL (7-18)
[2022-08-01 06:30] LABS: GLOMERULAR FILTR. RATE CALC > 60 mL/min (>60)
[2022-08-01] MEDS: DIAZEPAM 5 MG TABLET PO SCH ×2 (09:00→20:41)
[2022-08-01] MEDS: FOLIC ACID 1 MG TABLET PO SCH (10:47)
[2022-08-01] MEDS: HEPARIN SODIUM,PORCINE 5,000 UNITS/ML VIAL SQ SCH ×3 (10:48→23:34)
[2022-08-01] MEDS: PROPRANOLOL HCL 60 MG ER CAPSULE PO SCH (10:48)
[2022-08-01] MEDS: THIAMINE 100 MG TABLET PO SCH (10:48)
[2022-08-01] MEDS: MULTIVITAMINS WITH MINERALS, THERAPEUTIC TABLET PO SCH (10:48)
[2022-08-01] MEDS: DOCUSATE SODIUM 100 MG/10 ML LIQUID UDCUP NG SCH ×2 (10:48→20:41)
[2022-08-01] MEDS: PANTOPRAZOLE SODIUM 40 MG/VIAL IVP SCH (10:49)
[2022-08-01] MEDS: OLANZapine 5 MG RAPDIS TABLET PO SCH (20:41)
[2022-08-01 22:47] LABS: APPEARANCE,URINE TURBID (CLEAR); BILIRUBIN,URINE NEGATIVE (NEGATIVE); GLUCOSE, URINE (UA) NEGATIVE (NEGATIVE); KETONES,URINE TRACE mg/dL (NEGATIVE); LEUKOCYTE ESTERASE ,URINE NEGATIVE (NEGATIVE); NITRATE,URINE NEGATIVE (NEGATIVE); OCCULT BLOOD,URINE NEGATIVE (NEGATIVE); PH,URINE 5.5 (5.0-8.0); PROTEIN,URINE TRACE mg/dL (NEGATIVE); SPECIFIC GRAVITIY, URINE 1.022 (1.003-1.030)
[2022-08-01 23:16] LABS: BACTERIA,URINE Moderate /HPF (None Seen); RBC,URINE None Seen /HPF (0-2); WBC,URINE 0-2 /HPF (0-5)
[2022-08-02] VITALS: BP 119/86
[2022-08-02] MEDS: ZOLPIDEM TARTRATE 5 MG TABLET PO PRN (01:20)
[2022-08-02 04:00] VITALS: BP 103/76
[2022-08-02 06:18] LABS: ANION GAP 12 mmol/L (8-16); CALCIUM, TOTAL 9.3 mg/dL (8.8-10.5); CARBON DIOXIDE 28 mmol/L (22-29); CHLORIDE 100 mmol/L (98-107); CREATININE 0.58 mg/dL (0.60-1.30); GLUCOSE,RANDOM 91 mg/dL (70-110); POTASSIUM 3.6 mmol/L (3.5-5.1); SODIUM SERUM 140 mmol/L (136-145); UREA NITROGEN, BLOOD 10 mg/dL (7-18)
[2022-08-02 06:20] LABS: GLOMERULAR FILTR. RATE CALC > 60 mL/min (>60)
[2022-08-02 07:30] VITALS: BP 108/77
[2022-08-02] MEDS: PROPRANOLOL HCL 60 MG ER CAPSULE PO SCH ×2 (08:44→08:58)
[2022-08-02] MEDS: DOCUSATE SODIUM 100 MG/10 ML LIQUID UDCUP NG SCH ×2 (08:45→20:03)
[2022-08-02] MEDS: FOLIC ACID 1 MG TABLET PO SCH (08:45)
[2022-08-02] MEDS: HEPARIN SODIUM,PORCINE 5,000 UNITS/ML VIAL SQ SCH ×2 (08:45→17:33)
[2022-08-02] MEDS: MULTIVITAMINS WITH MINERALS, THERAPEUTIC TABLET PO SCH (08:45)
[2022-08-02] MEDS: THIAMINE 100 MG TABLET PO SCH (08:45)
[2022-08-02] MEDS: DIAZEPAM 5 MG TABLET PO SCH ×2 (08:46→20:03)
[2022-08-02] MEDS: PANTOPRAZOLE SODIUM 40 MG/VIAL IVP SCH (09:07)
[2022-08-02 11:27] VITALS: BP 129/87
[2022-08-02 16:07] VITALS: BP 123/63
[2022-08-02 20:00] VITALS: BP 112/88
[2022-08-02] MEDS: OLANZapine 5 MG RAPDIS TABLET PO SCH (20:03)
[2022-08-03] VITALS (7 sets, daily range): BP systolic 104–136; BP diastolic 64–106
[2022-08-03] MEDS: HEPARIN SODIUM,PORCINE 5,000 UNITS/ML VIAL SQ SCH ×3 (00:22→17:31)
[2022-08-03] MEDS: DOCUSATE SODIUM 100 MG/10 ML LIQUID UDCUP NG SCH ×2 (10:28→20:38)
[2022-08-03] MEDS: PROPRANOLOL HCL 60 MG ER CAPSULE PO SCH (10:28)
[2022-08-03] MEDS: PANTOPRAZOLE SODIUM 40 MG/VIAL IVP SCH (10:28)
[2022-08-03] MEDS: FOLIC ACID 1 MG TABLET PO SCH (10:29)
[2022-08-03] MEDS: MULTIVITAMINS WITH MINERALS, THERAPEUTIC TABLET PO SCH (10:29)
[2022-08-03] MEDS: DIAZEPAM 5 MG TABLET PO SCH ×2 (10:29→20:37)
[2022-08-03] MEDS: THIAMINE 100 MG TABLET PO SCH (10:30)
[2022-08-03] MEDS: OLANZapine 5 MG RAPDIS TABLET PO SCH (20:38)
[2022-08-04 00:06] VITALS: BP 118/69
[2022-08-04] MEDS: HEPARIN SODIUM,PORCINE 5,000 UNITS/ML VIAL SQ SCH ×3 (00:39→16:16)
[2022-08-04 04:26] VITALS: BP 123/64
[2022-08-04 06:43] LABS: BASOPHILS % (AUTO) 1.3 % (0.0-2.0); EOSINOPHILS % (AUTO) 6.9 % (1.0-6.0); HEMATOCRIT 33.4 % (36-46); HEMOGLOBIN 11.3 g/dL (12.0-16.0); LYMPHOCYTES # (AUTO) 1.5 K/uL (1.0-4.8); LYMPHOCYTES % (AUTO) 34.5 % (22.0-44.0); MEAN CORPUSCULAR HEMOGLOBIN 32.8 pg (26.0-34.0); MEAN CORPUSCULAR HGB CONC 33.8 G/dL (31.0-37.0); MEAN CORPUSCULAR VOLUME 97 fL (80-100); MONOCYTES # (AUTO) 0.6 K/uL (0.1-1.0); NEUTROPHILS # (AUTO) 1.9 K/uL (1.8-7.7); NEUTROPHILS % (AUTO) 44.3 % (40.0-70.0); PLATELET COUNT (AUTO) 236 K/uL (150-450); RED BLOOD CELL COUNT(AUTO) 3.43 MIL/uL (4.00-5.20); RED CELL DISTRIBUTION WIDTH 16.1 % (11.5-14.5)
[2022-08-04 07:14] LABS: ALANINE AMINOTRANSFERASE 28 U/L (12-78); ALBUMIN 3.1 g/dL (3.4-5.0); ALKALINE PHOSPHATASE 59 U/L (46-116); ANION GAP 7 mmol/L (8-16); ASPARTATE AMINOTRANSFERASE 27 U/L (15-37); BILIRUBIN,TOTAL 0.4 mg/dL (0.1-1.0); CARBON DIOXIDE 30 mmol/L (22-29); CHLORIDE 101 mmol/L (98-107); CREATININE 0.52 mg/dL (0.60-1.30); GLUCOSE,RANDOM 110 mg/dL (70-110); SODIUM SERUM 138 mmol/L (136-145); TOTAL PROTEIN, SERUM 7.4 g/dL (6.4-8.2); UREA NITROGEN, BLOOD 8 mg/dL (7-18)
[2022-08-04 07:15] LABS: GLOMERULAR FILTR. RATE CALC > 60 mL/min (>60)
[2022-08-04 08:23] VITALS: BP 107/72
[2022-08-04] MEDS: DOCUSATE SODIUM 100 MG/10 ML LIQUID UDCUP NG SCH ×2 (08:55→20:10)
[2022-08-04] MEDS: MULTIVITAMINS WITH MINERALS, THERAPEUTIC TABLET PO SCH (08:56)
[2022-08-04] MEDS: POTASSIUM CHLORIDE 20 MEQ ER TABLET PO PRN (08:56)
[2022-08-04] MEDS: PANTOPRAZOLE SODIUM 40 MG/VIAL IVP SCH (08:56)
[2022-08-04] MEDS: THIAMINE 100 MG TABLET PO SCH (08:56)
[2022-08-04] MEDS: PROPRANOLOL HCL 60 MG ER CAPSULE PO SCH (08:56)
[2022-08-04] MEDS: DIAZEPAM 5 MG TABLET PO SCH ×2 (08:57→20:10)
[2022-08-04] MEDS: FOLIC ACID 1 MG TABLET PO SCH (08:57)
[2022-08-04 11:35] VITALS: BP 112/66
[2022-08-04 15:20] VITALS: BP 107/60
[2022-08-04 20:00] VITALS: BP 110/62
[2022-08-04] MEDS: OLANZapine 5 MG RAPDIS TABLET PO SCH (20:10)
[2022-08-05] VITALS: BP 116/77
[2022-08-05] MEDS: HEPARIN SODIUM,PORCINE 5,000 UNITS/ML VIAL SQ SCH ×4 (00:21→23:35)
[2022-08-05 04:00] VITALS: BP 109/68
[2022-08-05 06:00] LABS: EOSINOPHILS % (AUTO) 6.7 % (1.0-6.0); HEMATOCRIT 36.8 % (36-46); HEMOGLOBIN 12.3 g/dL (12.0-16.0); LYMPHOCYTES # (AUTO) 1.2 K/uL (1.0-4.8); LYMPHOCYTES % (AUTO) 26.9 % (22.0-44.0); MEAN CORPUSCULAR HEMOGLOBIN 32.7 pg (26.0-34.0); MEAN CORPUSCULAR HGB CONC 33.3 G/dL (31.0-37.0); MEAN CORPUSCULAR VOLUME 98 fL (80-100); MONOCYTES # (AUTO) 0.5 K/uL (0.1-1.0); MONOCYTES % (AUTO) 10.5 % (2.0-9.0); NEUTROPHILS # (AUTO) 2.5 K/uL (1.8-7.7); NEUTROPHILS % (AUTO) 54.9 % (40.0-70.0); PLATELET COUNT (AUTO) 224 K/uL (150-450); RED BLOOD CELL COUNT(AUTO) 3.76 MIL/uL (4.00-5.20); RED CELL DISTRIBUTION WIDTH 15.9 % (11.5-14.5)
[2022-08-05 06:25] LABS: ALANINE AMINOTRANSFERASE 31 U/L (12-78); ALBUMIN 3.2 g/dL (3.4-5.0); ALKALINE PHOSPHATASE 56 U/L (46-116); ANION GAP 8 mmol/L (8-16); ASPARTATE AMINOTRANSFERASE 27 U/L (15-37); BILIRUBIN,TOTAL 0.3 mg/dL (0.1-1.0); C-REACTIVE PROTEIN QUANT 1.36 mg/dL (0.00-0.30); CALCIUM, TOTAL 9.5 mg/dL (8.8-10.5); CARBON DIOXIDE 28 mmol/L (22-29); CHLORIDE 103 mmol/L (98-107); CREATININE 0.65 mg/dL (0.60-1.30); GLUCOSE,RANDOM 123 mg/dL (70-110); POTASSIUM 3.2 mmol/L (3.5-5.1); SODIUM SERUM 139 mmol/L (136-145); TOTAL PROTEIN, SERUM 7.5 g/dL (6.4-8.2); UREA NITROGEN, BLOOD 5 mg/dL (7-18)
[2022-08-05 06:40] LABS: GLOMERULAR FILTR. RATE CALC > 60 mL/min (>60)
[2022-08-05] MEDS: DOCUSATE SODIUM 100 MG/10 ML LIQUID UDCUP NG SCH ×2 (08:21→20:12)
[2022-08-05] MEDS: PROPRANOLOL HCL 60 MG ER CAPSULE PO SCH (08:21)
[2022-08-05] MEDS: MULTIVITAMINS WITH MINERALS, THERAPEUTIC TABLET PO SCH (08:21)
[2022-08-05] MEDS: THIAMINE 100 MG TABLET PO SCH (08:21)
[2022-08-05] MEDS: DIAZEPAM 5 MG TABLET PO SCH ×2 (08:22→20:12)
[2022-08-05] MEDS: POTASSIUM CHLORIDE 20 MEQ ER TABLET PO PRN (08:22)
[2022-08-05] MEDS: PANTOPRAZOLE SODIUM 40 MG/VIAL IVP SCH (08:22)
[2022-08-05] MEDS: FOLIC ACID 1 MG TABLET PO SCH (08:22)
[2022-08-05 19:58] VITALS: BP 111/73
[2022-08-05] MEDS: OLANZapine 5 MG RAPDIS TABLET PO SCH (20:12)
[2022-08-06 03:58] VITALS: BP 116/79
[2022-08-06 04:00] VITALS: BP 121/70
[2022-08-06 07:16] VITALS: BP 137/97
[2022-08-06] MEDS: THIAMINE 100 MG TABLET PO SCH (08:21)
[2022-08-06] MEDS: HEPARIN SODIUM,PORCINE 5,000 UNITS/ML VIAL SQ SCH ×3 (08:21→23:52)
[2022-08-06] MEDS: PANTOPRAZOLE SODIUM 40 MG/VIAL IVP SCH (08:21)
[2022-08-06] MEDS: FOLIC ACID 1 MG TABLET PO SCH (08:21)
[2022-08-06] MEDS: PROPRANOLOL HCL 60 MG ER CAPSULE PO SCH (08:21)
[2022-08-06] MEDS: MULTIVITAMINS WITH MINERALS, THERAPEUTIC TABLET PO SCH (08:21)
[2022-08-06] MEDS: DOCUSATE SODIUM 100 MG/10 ML LIQUID UDCUP NG SCH ×2 (08:22→20:42)
[2022-08-06] MEDS: DIAZEPAM 5 MG TABLET PO SCH ×2 (08:22→20:42)
[2022-08-06 10:54] VITALS: BP 122/85
[2022-08-06 15:02] VITALS: BP 138/74
[2022-08-06 20:00] VITALS: BP 114/74
[2022-08-06] MEDS: OLANZapine 5 MG RAPDIS TABLET PO SCH (20:42)
[2022-08-07 00:46] VITALS: BP 107/69
[2022-08-07 05:30] VITALS: BP 116/83
[2022-08-07 07:58] VITALS: BP 103/65
[2022-08-07] MEDS: PANTOPRAZOLE SODIUM 40 MG/VIAL IVP SCH (09:00)
[2022-08-07] MEDS: DOCUSATE SODIUM 100 MG/10 ML LIQUID UDCUP NG SCH (09:12)
[2022-08-07] MEDS: OLANZapine 5 MG RAPDIS TABLET PO SCH (09:12)
[2022-08-07] MEDS: DIAZEPAM 5 MG TABLET PO SCH (09:12)
[2022-08-07] MEDS: MULTIVITAMINS WITH MINERALS, THERAPEUTIC TABLET PO SCH (09:12)
[2022-08-07] MEDS: PROPRANOLOL HCL 60 MG ER CAPSULE PO SCH (09:12)
[2022-08-07] MEDS: FOLIC ACID 1 MG TABLET PO SCH (09:12)
[2022-08-07] MEDS: THIAMINE 100 MG TABLET PO SCH (09:13)
[2022-08-07] MEDS: HEPARIN SODIUM,PORCINE 5,000 UNITS/ML VIAL SQ SCH ×2 (09:13→17:00)
[2022-08-07 11:50] VITALS: BP 109/84
[2022-08-07 16:15] VITALS: BP 106/72
== END 2022-08-07 20:00 | DRG 321 ==
LOC: 6S 05:20 → ICU 18:08 → 6N 07-14 07:54 → ICU 07-15 13:50 → 5S 07-27 19:30
PROVIDERS: ADMIT Neurological Surgery; ATTEND Neurological Surgery
PROC: 0RG20A0 Fusion of 2 or more Cervical Vertebral Joints with Interbody Fusion Device, Anterior Approach, Anterior Column, Open Approach (ICD-10-PCS; 2022-07-11)
PROC: 0RB30ZZ Excision of Cervical Vertebral Disc, Open Approach (ICD-10-PCS; 2022-07-11)
PROC: 8E0WXBZ Computer Assisted Procedure of Trunk Region (ICD-10-PCS; 2022-07-11)
PROC: BR201ZZ Computerized Tomography (CT Scan) of Cervical Spine using Low Osmolar Contrast (ICD-10-PCS; 2022-07-11)
PROC: 4A11X4G Monitoring of Peripheral Nervous Electrical Activity, Intraoperative, External Approach (ICD-10-PCS; 2022-07-11)
PROC: 0RG2071 Fusion of 2 or more Cervical Vertebral Joints with Autologous Tissue Substitute, Posterior Approach, Posterior Column, Open Approach (ICD-10-PCS; principal; 2022-07-11 07:30)
PROC: 0BH17EZ Insertion of Endotracheal Airway into Trachea, Via Natural or Artificial Opening (ICD-10-PCS; 2022-07-16)
PROC: 5A1955Z Respiratory Ventilation, Greater than 96 Consecutive Hours (ICD-10-PCS; 2022-07-16)
DX: M50.320 Other cervical disc degeneration, mid-cervical region, unspecified level (principal); J96.01 Acute respiratory failure with hypoxia; J69.0 Pneumonitis due to inhalation of food and vomit; G93.41 Metabolic encephalopathy; F10.231 Alcohol dependence with withdrawal delirium; E87.6 Hypokalemia; M48.02 Spinal stenosis, cervical region; N39.0 Urinary tract infection, site not specified; K70.30 Alcoholic cirrhosis of liver without ascites; I10 Essential (primary) hypertension; E66.9 Obesity, unspecified; I82.4Z3 Acute embolism and thrombosis of unspecified deep veins of distal lower extremity, bilateral; K21.9 Gastro-esophageal reflux disease without esophagitis; Z20.822 Contact with and (suspected) exposure to COVID-19; F41.9 Anxiety disorder, unspecified; D64.9 Anemia, unspecified; J98.11 Atelectasis; Z88.6 Allergy status to analgesic agent; Z78.1 Physical restraint status; Z79.899 Other long term (current) drug therapy; Z68.23 Body mass index [BMI] 23.0-23.9, adult; Z88.5 Allergy status to narcotic agent
CPT/HCPCS: 36600; 70450; 71045; 71046; 71275; 72020; 72052; 72125; 72141; 74018; 74230; 80048; 80053; 81001; 81003; 82140; 82805; 82962; 83735; 84100; 84132; 84145; 84703; 85025; 85610; 85730; 86140; 87040; 87070; 87081; 87086; 87186; 87205; 92507; 92526; 92610; 93005; 93970; 94002; 94003; 94640; 97110; 97112; 97116; 97162; 97163; 97167; 97530; 97535; C9113; G0238; G0378; J0295; J0690; J0696; J1100; J1170; J1644; J1956; J2060; J2250; J2270; J2370; J2405; J2704; J3010; J3370; J3411; J3475; J3480; J3490; J7030; J7040; J7050; J7120; Q9967; 36415-L1; 36415-TC; C1716; J7613; Z7610